=== PATIENT | female | born 1955 | race Caucasian/White ===

== ENCOUNTER → 2019-12-27 | Outpatient (REF) | payer MEDICARE | LOC: M SFHCADAM 10:19 | PROVIDERS: ATTEND Physician Assistant | DX: R30.0 Dysuria (principal) ==

== ENCOUNTER → 2020-11-01 | Outpatient (REF) | payer MEDICARE ==
[2020-11-01 17:29] LABS: ALBUMIN 3.7 GM/DL (3.2-5.2); BILIRUBIN,TOTAL 0.5 MG/DL (0.2-1.0); CALCIUM LEVEL 8.6 MG/DL (8.8-10.2); CREATININE FOR GFR 1.85 MG/DL (0.55-1.30); GLOMERULAR FILTRATION RATE 29.2 (>45); POTASSIUM SERUM 4.4 MEQ/L (3.5-5.1); TOTAL PROTEIN 7.2 GM/DL (6.4-8.2)
[2020-11-01 17:39] LABS: HEMOGLOBIN A1c 9.4 %
== END ==
LOC: M SFHCADAM 11:37
PROVIDERS: ATTEND Physician Assistant
DX: E78.2 Mixed hyperlipidemia (principal); I10 Essential (primary) hypertension; E11.69 Type 2 diabetes mellitus with other specified complication
CPT/HCPCS: 80053; 80061; 83036; G0463

== ENCOUNTER → 2021-06-18 | Outpatient (REF) | payer OTHER ==
[2021-06-18 14:26] LABS: ALBUMIN 2.4 GM/DL (3.2-5.2); BILIRUBIN,TOTAL 0.6 MG/DL (0.2-1.0); CALCIUM LEVEL 8.7 MG/DL (8.8-10.2); CREATININE FOR GFR 2.68 MG/DL (0.55-1.30); POTASSIUM SERUM 4.7 MEQ/L (3.5-5.1); TOTAL PROTEIN 6.7 GM/DL (6.4-8.2)
[2021-06-18 14:49] LABS: HEMOGLOBIN A1c 9.6 %
== END ==
LOC: M SFHCADAM 09:40
PROVIDERS: ATTEND Physician Assistant
DX: E78.2 Mixed hyperlipidemia (principal); I10 Essential (primary) hypertension; E11.69 Type 2 diabetes mellitus with other specified complication
CPT/HCPCS: 80053; 83036; G0463

== ENCOUNTER 2021-09-07 11:55 | Outpatient (CLI) | payer OTHER ==
[~2021-09-07 11:55] MED LIST: ALBUTEROL SULFATE 2.5 MG/0.5 ML INH NEB SOLN INH PRN; EPINEPHrine INJ 1 MG/ML 1ML AMP IM PRN; diphenhydrAMINE 50MG/ML VIAL (J1200) IV PRN; methylPREDNISolone 125MG 2ML VIAL IV PRN
[2021-09-07 12:00] VITALS: BP 107/55
[2021-09-07] MEDS ORDERED: IRON SUCROSE 75 MG in NS 75 ML IV ONE (12:00)
[2021-09-07] MEDS ORDERED: diphenhydrAMINE 50MG/ML VIAL (J1200) IV ONE (12:00)
[2021-09-07] MEDS ORDERED: NS 1,000 ML IV SCH (12:00)
[2021-09-07] MEDS ORDERED: NS IV ONE (12:00)
[2021-09-07] MEDS ORDERED: IRON SUCROSE IV ONE (12:00)
[2021-09-07] MEDS ORDERED: methylPREDNISolone 40MG 1ML VIAL IV ONE (12:00)
[2021-09-07] MEDS ORDERED: IRON SUCROSE 25 MG in NS 25 ML IV ONE (12:00)
[2021-09-07 13:35] VITALS: BP 105/60
[2021-09-07 14:00] VITALS: BP 93/57
== END 2021-09-07 14:10 | disposition home or self-care (01) ==
LOC: M INFU 11:55
PROVIDERS: ATTEND Physician Assistant
DX: D50.8 Other iron deficiency anemias (principal)
CPT/HCPCS: 96365; J1756

== ENCOUNTER 2021-09-14 11:56 | Outpatient (CLI) | payer OTHER ==
[2021-09-14] MEDS ORDERED: IRON SUCROSE 100 MG in NS 100 ML OVER 1 HR IV ONE (12:00)
[2021-09-14] MEDS ORDERED: NS 1,000 ML IV SCH (12:00)
[2021-09-14] MEDS ORDERED: EPINEPHrine INJ 1 MG/ML 1ML AMP IM PRN (12:00)
[2021-09-14] MEDS ORDERED: diphenhydrAMINE 50MG/ML VIAL (J1200) IV PRN (12:00)
[2021-09-14] MEDS ORDERED: diphenhydrAMINE 50MG/ML VIAL (J1200) IV ONE (12:00)
[2021-09-14] MEDS ORDERED: ALBUTEROL SULFATE 2.5 MG/0.5 ML INH NEB SOLN INH PRN (12:00)
[2021-09-14] MEDS ORDERED: methylPREDNISolone 40MG 1ML VIAL IV ONE (12:00)
[2021-09-14] MEDS ORDERED: methylPREDNISolone 125MG 2ML VIAL IV PRN (12:00)
[2021-09-14 12:10] VITALS: BP 101/73
[2021-09-14 15:15] VITALS: BP 118/60
== END 2021-09-14 15:15 | disposition home or self-care (01) ==
LOC: M INFU 11:56
PROVIDERS: ATTEND Physician Assistant
DX: D50.8 Other iron deficiency anemias (principal)
CPT/HCPCS: 96365; J1756

== ENCOUNTER 2021-09-24 11:17 | Outpatient (CLI) | payer OTHER ==
[~2021-09-24 11:17] MED LIST changes: +IRON SUCROSE 100 MG in NS 100 ML IV ONE; +IRON SUCROSE 75 MG in NS 100 ML IV ONE; +NS 1,000 ML IV SCH
[2021-09-24 11:35] VITALS: BP 142/69
[2021-09-24] MEDS ORDERED: IRON SUCROSE 100 MG in NS 100 ML OVER 1 HR IV ONE (12:00)
[2021-09-24] MEDS ORDERED: NS 1,000 ML IV ONE (12:00)
[2021-09-24 12:30] VITALS: BP 145/84
[2021-09-24 13:26] VITALS: BP 144/74
== END 2021-09-24 13:30 | disposition home or self-care (01) ==
LOC: M INFU 11:17
PROVIDERS: ATTEND Physician Assistant
DX: D50.8 Other iron deficiency anemias (principal); Z88.0 Allergy status to penicillin; Z88.1 Allergy status to other antibiotic agents
CPT/HCPCS: 96365; J1756

== ENCOUNTER → 2021-12-19 | Outpatient (REF) | payer OTHER ==
[2021-12-19 17:55] LABS: PERCENT SATURATION 15.7 % (13.2-45.0)
== END ==
LOC: M LAB REF 16:47
PROVIDERS: ATTEND Internal Medicine Nephrology
DX: E61.1 Iron deficiency (principal)

== ENCOUNTER 2021-12-31 13:24 | Outpatient (CLI) | payer OTHER ==
[~2021-12-31] VITALS: Ht 180.3 cm; Wt 83.9 kg
[~2021-12-31 13:24] MED LIST changes: -IRON SUCROSE 100 MG in NS 100 ML IV ONE; -IRON SUCROSE 75 MG in NS 100 ML IV ONE; -NS 1,000 ML IV SCH
[2021-12-31 13:30] VITALS: BP 174/72
[2021-12-31] MEDS ORDERED: NS 1,000 ML IV SCH (13:30)
[2021-12-31] MEDS ORDERED: FERRIC CARBOXYMALTOSE INJ 750 MG, VIAL MATE ADAPTER 1 EACH in NS 250 ML IV ONE (13:30)
[2021-12-31 15:00] VITALS: BP 151/67
== END 2021-12-31 15:00 | disposition home or self-care (01) ==
LOC: M INFU 13:24
PROVIDERS: ATTEND Internal Medicine Nephrology
DX: E61.1 Iron deficiency (principal); Z88.0 Allergy status to penicillin; Z88.1 Allergy status to other antibiotic agents
CPT/HCPCS: 96365; J1439

== ENCOUNTER 2022-05-13 17:37 | Inpatient (IN) | payer OTHER ==
[~2022-05-13] VITALS: Ht 180.3 cm; Wt 82.5 kg
[2022-05-13] MEDS ORDERED: PANTOPRAZOLE 40MG VIAL IV ONE (20:40)
[2022-05-13] MEDS: PANTOPRAZOLE SODIUM 40 MG in D5W 50 ML IV SCH (20:40)
[2022-05-13 20:45] LABS: BASO # 0.1 10^3/uL (0.0-0.2); EOS # 0.1 10^3/uL (0.0-0.5); LYMPH # 2.1 10^3/uL (1.5-5.0); LYMPH % 29.9 % (24.0-44.0); MEAN CORPUSCULAR HEMOGLOBIN 31.8 pg (27.0-33.0); MEAN CORPUSCULAR HGB CONC 30.8 g/dl (32.0-36.5); MEAN CORPUSCULAR VOLUME 103.1 fl (80.0-96.0); MONO # 0.5 10^3/uL (0.0-0.8); MONO % 6.7 % (2.0-8.0); NEUTROPHILS # 4.2 10^3/uL (1.5-8.5); NEUTROPHILS % 60.1 % (36.0-66.0); PLATELET COUNT, AUTOMATED 322 10^3/uL (150-450); RED BLOOD COUNT 1.92 10^6/uL (4.00-5.40)
[2022-05-13 20:46] LABS: HEMOGLOBIN 6.1 g/dl (12.0-15.5)
[2022-05-13 20:47] LABS: HEMATOCRIT 19.8 % (36.0-47.0)
[2022-05-13 20:55] LABS: INR 1.48; PROTHROMBIN TIME 18.2 SECONDS (12.5-14.5)
[2022-05-13] MEDS ORDERED: diphenhydrAMINE 50MG/ML VIAL (J1200) IV ONE (20:55)
[2022-05-13 20:56] LABS: PARTIAL THROMBOPLASTIN TIME 40.6 SECONDS (24.8-34.2)
[2022-05-13 21:15] LABS: RSV AMPLIFICATION NEGATIVE (NEGATIVE)
[2022-05-13] MEDS ORDERED: NOVOINJ3 SQ (21:38)
[2022-05-13] MEDS ORDERED: GABA-282 PO (21:38)
[2022-05-13] MEDS ORDERED: TIMO0.5S29 OD (21:38)
[2022-05-13] MEDS ORDERED: LANTINJ4 SC (21:38)
[2022-05-13] MEDS ORDERED: ATOR40TA75 PO (21:38)
[2022-05-13] MEDS ORDERED: HYDR-3719 PO (21:38)
[2022-05-13] MEDS ORDERED: LISI10TA22 PO ×2 (21:38)
[2022-05-13] MEDS ORDERED: VITA100093 PO (21:38)
[2022-05-13] MEDS ORDERED: MIRT-10 PO (21:38)
[2022-05-13] MEDS ORDERED: ELIQ5TAB PO (21:38)
[2022-05-13 21:39] LABS: ALBUMIN 2.5 GM/DL (3.2-5.2); BILIRUBIN,DIRECT 0.2 MG/DL (0.0-0.2); BILIRUBIN,TOTAL 0.5 MG/DL (0.2-1.0); CALCIUM LEVEL 8.2 MG/DL (8.8-10.2); CREATININE FOR GFR 2.07 MG/DL (0.55-1.30); GLOMERULAR FILTRATION RATE 25.5 (>45); POTASSIUM SERUM 4.2 MEQ/L (3.5-5.1); TOTAL PROTEIN 5.8 GM/DL (6.4-8.2)
[2022-05-13] MEDS ORDERED: HOME MED LIST COMPLETE! XX SCH (21:40)
[2022-05-13] MEDS ORDERED: ALBUTEROL SULFATE 2.5 MG/0.5 ML INH NEB SOLN NEB PRN (23:25)
[2022-05-13] MEDS: NS 1,000 ML IV SCH (23:25)
[2022-05-13] MEDS ORDERED: GLUCAGON INJ 1MG VIAL SC PRN (23:25)
[2022-05-13] MEDS ORDERED: DEXTROSE 50% 50 ML SYRINGE IV PRN (23:25)
[2022-05-13] MEDS ORDERED: METOCLOPRAMIDE INJ 10MG/2ML VIAL (J2765 PER 1) IV PRN (23:25)
[2022-05-13] MEDS ORDERED: GLUCOSE 4GM CHEW TABLET PO PRN (23:25)
[2022-05-14] VITALS (16 sets, daily range): BP systolic 116–140; BP diastolic 67–91
[2022-05-14] MEDS: INSULIN LISPRO (NovoLOG) PER UNIT SC SCH ×2 (01:20→06:33)
[2022-05-14] MEDS: HYDROMORPHONE HCL 0.5 MG/ 0.5 ML SYRINGE (J1170 PER 1) IV PRN ×3 (01:58→14:39)
[2022-05-14] MEDS: IPRATROPIUM 0.5MG/ALBUTEROL 2.5MG INH SOL UD 3ML (DUONEB) NEB SCH ×4 (02:00→21:07)
[2022-05-14] MEDS: PANTOPRAZOLE SODIUM 40 MG in D5W 50 ML IV SCH (02:04)
[2022-05-14] MEDS ORDERED: diphenhydrAMINE 50MG CAP PO PRN (04:00)
[2022-05-14] MEDS: PANTOPRAZOLE 40MG VIAL IV SCH ×2 (08:10→21:32)
[2022-05-14] MEDS: TIMOLOL MALEATE 0.5% OPHTH SOLN 5 ML OD SCH ×2 (08:10→21:33)
[2022-05-14] MEDS: LEVEMIR (INSULIN DETEMIR) 1 UNITS/0.01ML SC SCH (08:10)
[2022-05-14] MEDS: NICOTINE 21MG/24HR 1 EA TRANSDERMAL TD SCH (08:11)
[2022-05-14] MEDS ORDERED: FLUBLOK(EGG FREE)(QUAD)INFLUENZA VACC 0.5ML SYRINGE 18YRS & OLDER IM.IMMUN ONE (09:00)
[2022-05-14] MEDS ORDERED: hydrOXYzine 50 MG TAB PO PRN (09:25)
[2022-05-14 09:37] LABS: HEMATOCRIT 25.9 % (36.0-47.0)
[2022-05-14 09:44] LABS: HEMOGLOBIN 8.2 g/dl (12.0-15.5)
[2022-05-14 10:09] LABS: CALCIUM LEVEL 8.2 MG/DL (8.8-10.2); CREATININE FOR GFR 2.04 MG/DL (0.55-1.30); GLOMERULAR FILTRATION RATE 25.9 (>45); POTASSIUM SERUM 4.1 MEQ/L (3.5-5.1)
[2022-05-14] MEDS: GABAPENTIN 300 MG CAP PO SCH ×3 (10:23→21:33)
[2022-05-14] MEDS: VANICREAM MOISTURIZING SKIN CREAM 113GM TUBE TOP SCH ×2 (12:17→21:33)
[2022-05-14 14:39] LABS: HEMATOCRIT 27.5 % (36.0-47.0); HEMOGLOBIN 8.7 g/dl (12.0-15.5)
[2022-05-14] MEDS: SUCRALFATE SUSP 1GM/10ML UD PO SCH (17:02)
[2022-05-14] MEDS: NS 1,000 ML IV SCH (17:03)
[2022-05-14 20:08] LABS: HEMATOCRIT 24.5 % (36.0-47.0); HEMOGLOBIN 7.8 g/dl (12.0-15.5)
[2022-05-14] MEDS: NORCO, ANEXSIA 5/325MG TABLET (HYDROcodone/ACETAMINOPHEN) PO PRN (21:33)
[2022-05-14] MEDS: MIRTAZAPINE 15 MG TAB PO SCH (21:33)
[2022-05-15] MEDS: SUCRALFATE SUSP 1GM/10ML UD PO SCH ×5 (00:06→23:41)
[2022-05-15] MEDS: IPRATROPIUM 0.5MG/ALBUTEROL 2.5MG INH SOL UD 3ML (DUONEB) NEB SCH ×4 (02:00→21:13)
[2022-05-15 03:54] LABS: BASO # 0.1 10^3/uL (0.0-0.2); BASO % 0.9 % (0.0-1.0); EOS # 0.2 10^3/uL (0.0-0.5); EOS % 3.1 % (0.0-3.0); HEMATOCRIT 28.4 % (36.0-47.0); HEMOGLOBIN 9.4 g/dl (12.0-15.5); LYMPH # 1.6 10^3/uL (1.5-5.0); LYMPH % 23.5 % (24.0-44.0); MEAN CORPUSCULAR HEMOGLOBIN 31.1 pg (27.0-33.0); MEAN CORPUSCULAR HGB CONC 33.1 g/dl (32.0-36.5); MONO # 0.5 10^3/uL (0.0-0.8); MONO % 7.5 % (2.0-8.0); NEUTROPHILS # 4.4 10^3/uL (1.5-8.5); NEUTROPHILS % 64.7 % (36.0-66.0); PLATELET COUNT, AUTOMATED 267 10^3/uL (150-450); RED BLOOD COUNT 3.02 10^6/uL (4.00-5.40); WHITE BLOOD COUNT 6.8 10^3/uL (4.0-10.0)
[2022-05-15 04:11] LABS: CALCIUM LEVEL 8.1 MG/DL (8.8-10.2); CREATININE FOR GFR 1.96 MG/DL (0.55-1.30); GLOMERULAR FILTRATION RATE 27.2 (>45); MAGNESIUM LEVEL 1.5 MG/DL (1.8-2.4); PERCENT SATURATION 90.9 % (13.2-45.0); PHOSPHORUS LEVEL 3.4 MG/DL (2.5-4.9); POTASSIUM SERUM 4.6 MEQ/L (3.5-5.1)
[2022-05-15 05:29] VITALS: BP 125/76
[2022-05-15] MEDS: INSULIN LISPRO (NovoLOG) PER UNIT SC SCH ×3 (07:30→17:29)
[2022-05-15] MEDS ORDERED: MAG SULF 1GM/100ML (MAG RUN) 1 GM in IV 1 EA IV ONE (08:05)
[2022-05-15] MEDS: NICOTINE 21MG/24HR 1 EA TRANSDERMAL TD SCH (08:47)
[2022-05-15] MEDS: MAGNESIUM OXIDE 400MG TAB (MAG-OX) PO SCH (08:48)
[2022-05-15] MEDS: LEVEMIR (INSULIN DETEMIR) 1 UNITS/0.01ML SC SCH (08:48)
[2022-05-15] MEDS: GABAPENTIN 300 MG CAP PO SCH ×3 (08:48→21:44)
[2022-05-15] MEDS: PANTOPRAZOLE 40MG VIAL IV SCH ×2 (08:48→21:44)
[2022-05-15] MEDS: TIMOLOL MALEATE 0.5% OPHTH SOLN 5 ML OD SCH ×2 (08:49→21:45)
[2022-05-15] MEDS: VANICREAM MOISTURIZING SKIN CREAM 113GM TUBE TOP SCH ×2 (08:49→21:45)
[2022-05-15] MEDS ORDERED: DARBEPOETIN 100 MCG/0.5 ML *NON-DIALYSIS* SYRINGE (J0881) SQ SCH (09:00)
[2022-05-15] MEDS ORDERED: IRON SUCROSE 300 MG in NS 250 ML IV ONE (11:00)
[2022-05-15 14:00] VITALS: BP 124/70
[2022-05-15] MEDS ORDERED: LevoFLOXacin IV 500 MG in IV 1 EA IV ONE (16:00)
[2022-05-15] MEDS ORDERED: CEFDINIR 300 MG CAP (OMNICEF) PO ONE (18:00)
[2022-05-15] MEDS: NORCO, ANEXSIA 5/325MG TABLET (HYDROcodone/ACETAMINOPHEN) PO PRN ×2 (18:19→23:42)
[2022-05-15] MEDS: MIRTAZAPINE 15 MG TAB PO SCH (21:44)
[2022-05-15 22:00] VITALS: BP 113/49
[2022-05-16] MEDS: IPRATROPIUM 0.5MG/ALBUTEROL 2.5MG INH SOL UD 3ML (DUONEB) NEB SCH ×2 (02:00→07:23)
[2022-05-16 05:42] VITALS: BP 132/84
[2022-05-16] MEDS: SUCRALFATE SUSP 1GM/10ML UD PO SCH ×2 (05:49→12:18)
[2022-05-16 06:50] LABS: CALCIUM LEVEL 7.7 MG/DL (8.8-10.2); CREATININE FOR GFR 2.27 MG/DL (0.55-1.30); GLOMERULAR FILTRATION RATE 22.9 (>45); POTASSIUM SERUM 4.8 MEQ/L (3.5-5.1)
[2022-05-16 07:07] LABS: FOLATE 11.3 ng/mL (>3.0)
[2022-05-16] MEDS: GABAPENTIN 300 MG CAP PO SCH (08:28)
[2022-05-16] MEDS: MAGNESIUM OXIDE 400MG TAB (MAG-OX) PO SCH (08:28)
[2022-05-16] MEDS: PANTOPRAZOLE 40MG VIAL IV SCH (08:28)
[2022-05-16] MEDS: INSULIN LISPRO (NovoLOG) PER UNIT SC SCH ×2 (08:29→12:19)
[2022-05-16] MEDS: NICOTINE 21MG/24HR 1 EA TRANSDERMAL TD SCH (08:30)
[2022-05-16] MEDS: VANICREAM MOISTURIZING SKIN CREAM 113GM TUBE TOP SCH (08:30)
[2022-05-16] MEDS: TIMOLOL MALEATE 0.5% OPHTH SOLN 5 ML OD SCH (08:30)
[2022-05-16] MEDS ORDERED: CEFDINIR 300 MG CAP (OMNICEF) PO SCH (09:00)
[2022-05-16] MEDS ORDERED: LEVEMIR (INSULIN DETEMIR) 1 UNITS/0.01ML SC SCH (09:00)
[2022-05-16 09:34] LABS: BASO # 0.1 10^3/uL (0.0-0.2); BASO % 1.2 % (0.0-1.0); EOS # 0.2 10^3/uL (0.0-0.5); EOS % 2.7 % (0.0-3.0); HEMATOCRIT 30.8 % (36.0-47.0); HEMOGLOBIN 9.5 g/dl (12.0-15.5); LYMPH # 1.1 10^3/uL (1.5-5.0); LYMPH % 14.4 % (24.0-44.0); MEAN CORPUSCULAR HEMOGLOBIN 30.4 pg (27.0-33.0); MEAN CORPUSCULAR HGB CONC 30.8 g/dl (32.0-36.5); MEAN CORPUSCULAR VOLUME 98.7 fl (80.0-96.0); MONO # 0.7 10^3/uL (0.0-0.8); MONO % 8.4 % (2.0-8.0); NEUTROPHILS # 5.7 10^3/uL (1.5-8.5); NEUTROPHILS % 72.9 % (36.0-66.0); PLATELET COUNT, AUTOMATED 299 10^3/uL (150-450); RED BLOOD COUNT 3.12 10^6/uL (4.00-5.40); WHITE BLOOD COUNT 7.8 10^3/uL (4.0-10.0)
[2022-05-16] MEDS ORDERED: CEFD300CAP PO (12:42)
[2022-05-16] MEDS ORDERED: SUCR1TA PO (12:42)
[2022-05-16] MEDS ORDERED: PANT40TA29 PO (12:42)
[2022-05-16] MEDS ORDERED: LevoFLOXacin IV 250 MG in IV 1 EA IV SCH (16:00)
== END 2022-05-16 14:59 | disposition home health service (06) | DRG 813 ==
LOC: M ED 17:37 → M ED INP 23:21 → ENRESERV 05-14 00:26 → M MSPAV 05-14 02:26
PROVIDERS: ADMIT Internal Medicine; ATTEND Internal Medicine Nephrology
PROC: 30233N1 Transfusion of Nonautologous Red Blood Cells into Peripheral Vein, Percutaneous Approach (ICD-10-PCS; principal; 2022-05-14)
DX: D68.32 Hemorrhagic disorder due to extrinsic circulating anticoagulants (principal); N18.4 Chronic kidney disease, stage 4 (severe); D62 Acute posthemorrhagic anemia; K92.2 Gastrointestinal hemorrhage, unspecified; N39.0 Urinary tract infection, site not specified; K86.1 Other chronic pancreatitis; I48.91 Unspecified atrial fibrillation; K70.30 Alcoholic cirrhosis of liver without ascites; F17.210 Nicotine dependence, cigarettes, uncomplicated; L89.159 Pressure ulcer of sacral region, unspecified stage; R00.0 Tachycardia, unspecified; I12.9 Hypertensive chronic kidney disease with stage 1 through stage 4 chronic kidney disease, or unspecified chronic kidney disease; F32.A Depression, unspecified; J44.9 Chronic obstructive pulmonary disease, unspecified; E11.22 Type 2 diabetes mellitus with diabetic chronic kidney disease; E11.51 Type 2 diabetes mellitus with diabetic peripheral angiopathy without gangrene; I73.9 Peripheral vascular disease, unspecified; Z79.01 Long term (current) use of anticoagulants; Z79.4 Long term (current) use of insulin; Z79.899 Other long term (current) drug therapy; Z88.0 Allergy status to penicillin; Z88.1 Allergy status to other antibiotic agents; Z20.822 Contact with and (suspected) exposure to COVID-19; Z89.511 Acquired absence of right leg below knee; Z89.512 Acquired absence of left leg below knee; Z79.891 Long term (current) use of opiate analgesic; L29.9 Pruritus, unspecified; K21.9 Gastro-esophageal reflux disease without esophagitis; E11.42 Type 2 diabetes mellitus with diabetic polyneuropathy; E78.5 Hyperlipidemia, unspecified; G89.29 Other chronic pain; B96.1 Klebsiella pneumoniae [K. pneumoniae] as the cause of diseases classified elsewhere; D63.1 Anemia in chronic kidney disease; D50.9 Iron deficiency anemia, unspecified; K29.70 Gastritis, unspecified, without bleeding; E11.622 Type 2 diabetes mellitus with other skin ulcer

== ENCOUNTER → 2022-05-13 | Outpatient (REF) | payer OTHER ==
[~2022-05-13] MED LIST changes: -ALBUTEROL SULFATE 2.5 MG/0.5 ML INH NEB SOLN INH PRN; +ATOR40TA75 PO; +CEFD300CAP PO; +ELIQ5TAB PO; -EPINEPHrine INJ 1 MG/ML 1ML AMP IM PRN; +GABA-282 PO; +HYDR-3719 PO; +LANTINJ4 SC; +LISI10TA22 PO; +MIRT-10 PO; +NOVOINJ3 SQ; +PANT40TA29 PO; +SUCR1TA PO; +TIMO0.5S29 OD; +VITA100093 PO; -diphenhydrAMINE 50MG/ML VIAL (J1200) IV PRN; -methylPREDNISolone 125MG 2ML VIAL IV PRN
[2022-05-13 22:12] LABS: BACTERIA, URINE LARGE AMOUNT; HYALINE CAST, URINE NONE SEEN /lpf (0-1); RBC, URINE NONE SEEN /hpf (0-3); SQUAMOUS EPITHELIAL CELL URINE MOD AMOUNT /hpf (SMALL AMT); WBC, URINE TNTC /hpf (0-3)
== END ==
LOC: M LAB REF 16:58
PROVIDERS: ATTEND Internal Medicine Nephrology
DX: R30.0 Dysuria (principal)

== ENCOUNTER → 2022-05-30 | Outpatient (REF) | payer OTHER ==
[2022-05-30 13:36] LABS: HEMATOCRIT 30.2 % (36.0-47.0); HEMOGLOBIN 8.9 g/dl (12.0-15.5); MEAN CORPUSCULAR HEMOGLOBIN 30.6 pg (27.0-33.0); MEAN CORPUSCULAR HGB CONC 29.5 g/dl (32.0-36.5); MEAN CORPUSCULAR VOLUME 103.8 fl (80.0-96.0); PLATELET COUNT, AUTOMATED 369 10^3/uL (150-450); RED BLOOD COUNT 2.91 10^6/uL (4.00-5.40); WHITE BLOOD COUNT 8.5 10^3/uL (4.0-10.0)
[2022-05-30 13:48] LABS: INR 1.08; PROTHROMBIN TIME 14.2 SECONDS (12.5-14.5)
[2022-05-30 14:31] LABS: ALBUMIN 2.7 GM/DL (3.2-5.2); BILIRUBIN,TOTAL 0.5 MG/DL (0.2-1.0); CHOLESTEROL RISK RATIO 2.538 (<5); CREATININE FOR GFR 2.68 MG/DL (0.55-1.30); FREE T4 1.24 NG/DL (0.76-1.46); GLOMERULAR FILTRATION RATE 18.9 (>45); PERCENT SATURATION 10.2 % (13.2-45.0); POTASSIUM SERUM 4.8 MEQ/L (3.5-5.1); THYROID STIMULATING HORMONE 2.34 uIU/ML (0.358-3.740); TOTAL PROTEIN 6.1 GM/DL (6.4-8.2)
[2022-05-30 16:10] LABS: HEMOGLOBIN A1c 6.5 %
== END ==
LOC: M SFHCADAM 10:13
PROVIDERS: ATTEND Family Medicine
DX: K92.2 Gastrointestinal hemorrhage, unspecified (principal); K70.30 Alcoholic cirrhosis of liver without ascites; R32 Unspecified urinary incontinence; E11.69 Type 2 diabetes mellitus with other specified complication; I48.21 Permanent atrial fibrillation

== ENCOUNTER → 2022-06-27 | Outpatient (CLI) | payer OTHER | LOC: M RAD 13:44 | PROVIDERS: ATTEND Family Medicine | DX: Z12.2 Encounter for screening for malignant neoplasm of respiratory organs (principal); J90 Pleural effusion, not elsewhere classified; J98.11 Atelectasis; F17.210 Nicotine dependence, cigarettes, uncomplicated ==

== ENCOUNTER 2022-07-04 12:27 | Outpatient (CLI) | payer OTHER ==
[~2022-07-04] VITALS: Ht 180.3 cm; Wt 79.5 kg
[2022-07-04 13:00] VITALS: BP 136/82
[2022-07-04] MEDS ORDERED: FERRIC CARBOXYMALTOSE INJ 750 MG, VIAL MATE ADAPTER 1 EACH in NS 250 ML IV ONE (13:30)
[2022-07-04] MEDS ORDERED: EPINEPHrine INJ 1 MG/ML 1ML AMP IM PRN (13:30)
[2022-07-04] MEDS ORDERED: NS 1,000 ML IV SCH (13:30)
[2022-07-04] MEDS ORDERED: ALBUTEROL SULFATE 2.5 MG/0.5 ML INH NEB SOLN INH PRN (13:30)
[2022-07-04] MEDS ORDERED: methylPREDNISolone 125MG 2ML VIAL IV PRN (13:30)
[2022-07-04] MEDS ORDERED: diphenhydrAMINE 50MG/ML VIAL IV PRN (13:30)
[2022-07-04 14:40] VITALS: BP 127/78
== END 2022-07-04 14:40 | disposition home or self-care (01) ==
LOC: M INFU 12:27
PROVIDERS: ATTEND Internal Medicine Nephrology
DX: E61.1 Iron deficiency (principal); Z88.0 Allergy status to penicillin; Z88.1 Allergy status to other antibiotic agents
CPT/HCPCS: 96365; J1439

== ENCOUNTER 2022-08-02 09:43 | Inpatient (IN) | payer OTHER ==
[~2022-08-02] VITALS: Ht 180.3 cm; Wt 89.5 kg
[2022-08-02 12:06] LABS: BASO % 0.5 % (0.0-1.0); EOS # 0.1 10^3/uL (0.0-0.5); EOS % 1.3 % (0.0-3.0); HEMATOCRIT 34.8 % (36.0-47.0); HEMOGLOBIN 11.1 g/dl (12.0-15.5); LYMPH # 1.1 10^3/uL (1.5-5.0); LYMPH % 17.4 % (24.0-44.0); MEAN CORPUSCULAR HEMOGLOBIN 31.2 pg (27.0-33.0); MEAN CORPUSCULAR HGB CONC 31.9 g/dl (32.0-36.5); MEAN CORPUSCULAR VOLUME 97.8 fl (80.0-96.0); MONO # 0.7 10^3/uL (0.0-0.8); MONO % 10.7 % (2.0-8.0); NEUTROPHILS # 4.4 10^3/uL (1.5-8.5); NEUTROPHILS % 69.5 % (36.0-66.0); PLATELET COUNT, AUTOMATED 242 10^3/uL (150-450); RED BLOOD COUNT 3.56 10^6/uL (4.00-5.40); WHITE BLOOD COUNT 6.4 10^3/uL (4.0-10.0)
[2022-08-02 12:30] LABS: ALBUMIN 2.9 G/DL (3.2-5.2); BILIRUBIN,DIRECT 0.3 MG/DL (<0.4); BILIRUBIN,TOTAL 0.4 MG/DL (0.3-1.2); CALCIUM LEVEL 7.8 MG/DL (8.3-10.6); CREATININE FOR GFR 2.65 MG/DL (0.55-1.30); GLOMERULAR FILTRATION RATE 19.2 (>45); POTASSIUM SERUM 4.5 MMOL/L (3.5-5.1)
[2022-08-02 12:31] LABS: CK-MB VALUE MASS 1.9 NG/ML (<3.6)
[2022-08-02 12:34] LABS: THYROID STIMULATING HORMONE 2.504 uIU/ML (0.55-4.78)
[2022-08-02 12:35] LABS: RSV AMPLIFICATION NEGATIVE (NEGATIVE); THYROXINE (T4) 7.8 UG/DL (4.5-10.9)
[2022-08-02 12:36] LABS: MB/CK RELATIVE INDEX 3.06 (< OR =4)
[2022-08-02 14:14] LABS: CK-MB VALUE MASS 1.8 NG/ML (<3.6)
[2022-08-02 14:17] LABS: MB/CK RELATIVE INDEX 2.4 (< OR =4)
[2022-08-02] MEDS ORDERED: methylPREDNISolone 125MG 2ML VIAL IV ONE (14:20)
[2022-08-02] MEDS ORDERED: FUROSEMIDE 20MG/2ML VIAL IV ONE (14:20)
[2022-08-02] MEDS ORDERED: MIRT-60 PO (14:21)
[2022-08-02] MEDS ORDERED: PANT40TA29 PO (14:21)
[2022-08-02] MEDS ORDERED: GLUCINJ IM (14:28)
[2022-08-02] MEDS ORDERED: COMBAER6 INH (14:28)
[2022-08-02] MEDS ORDERED: LEVO1TAB38 PO (14:28)
[2022-08-02] MEDS ORDERED: FURO80TA2 PO (14:28)
[2022-08-02] MEDS ORDERED: HOME MED LIST COMPLETE! XX SCH (14:30)
[2022-08-02] MEDS ORDERED: NORCO, ANEXSIA 5/325MG TABLET (HYDROcodone/ACETAMINOPHEN) PO PRN (14:35)
[2022-08-02] MEDS ORDERED: DEXTROSE 50% 50ML SYRINGE IV PRN (14:40)
[2022-08-02] MEDS ORDERED: GLUCOSE 4GM CHEW TABLET PO PRN (14:40)
[2022-08-02] MEDS ORDERED: GLUCAGON INJ 1MG VIAL SC PRN (14:40)
[2022-08-02] MEDS: LEVALBUTEROL 1.25MG 0.5ML CONCENTRATE NEB NEB SCH ×2 (16:00→20:00)
[2022-08-02] MEDS: IPRATROPIUM 0.02% SOLN 0.5MG 2.5ML NEB NEB SCH ×2 (16:00→20:00)
[2022-08-02] MEDS ORDERED: GABAPENTIN 300 MG CAP PO SCH (16:00)
[2022-08-02] MEDS: AZITHROMYCIN 250MG TABLET PO SCH (16:49)
[2022-08-02 18:00] VITALS: BP 114/62
[2022-08-02] MEDS: NICOTINE 21MG/24HR 1 EA TRANSDERMAL TD SCH (18:21)
[2022-08-02] MEDS: INSULIN LISPRO (NovoLOG) PER UNIT SC SCH (18:22)
[2022-08-02] MEDS: GABAPENTIN 100 MG CAP PO SCH (20:55)
[2022-08-02] MEDS: METOPROLOL TART 12.5 MG PER 1/2 TAB PO SCH (20:55)
[2022-08-02] MEDS: HEPARIN SOD (PORCINE) 5000UNITS/ML 1ML VIAL/SYRINGE SC SCH (20:55)
[2022-08-02] MEDS: PANTOPRAZOLE 40MG TAB (PROTONIX) PO SCH (20:56)
[2022-08-02] MEDS: MIRTAZAPINE 15 MG TAB PO SCH (20:56)
[2022-08-02] MEDS: TIMOLOL MALEATE 0.5% OPHTH SOLN 5 ML OD SCH (21:00)
[2022-08-02] MEDS ORDERED: INSULIN LISPRO (NovoLOG) PER UNIT SC SCH (21:00)
[2022-08-02 22:00] VITALS: BP 114/66
[2022-08-03 02:41] LABS: APPEARANCE, URINE MANUAL HAZY (CLEAR); BILIRUBIN, URINE MANUAL NEGATIVE (NEGATIVE); BLOOD URINE MANUAL TRACE (NEGATIVE); COLOR, URINE MANUAL YELLOW (YELLOW); GLUCOSE, URINE (UA) MANUAL 1+(100 MG/DL) mg/dL (NEGATIVE); KETONE, URINE MANUAL NEGATIVE (NEGATIVE); LEUKOCYTE ESTERASE, URINE MAN POSITIVE (NEGATIVE); NITRITE, URINE MANUAL NEGATIVE (NEGATIVE); PROTEIN, URINE MANUAL TRACE mg/dL (NEGATIVE); UROBILINOGEN, URINE MANUAL NORMAL (NORMAL)
[2022-08-03 02:59] LABS: RBC, URINE 0-1 /hpf (0-3); WBC, URINE 20-30 /hpf (0-3)
[2022-08-03 03:00] LABS: BACTERIA, URINE LARGE AMOUNT; MUCUS, URINE MOD AMOUNT (NEGATIVE); SQUAMOUS EPITHELIAL CELL URINE NONE SEEN /hpf (SMALL AMT)
[2022-08-03 06:00] VITALS: BP 134/86
[2022-08-03 06:06] LABS: HEMATOCRIT 33.9 % (36.0-47.0); HEMOGLOBIN 10.7 g/dl (12.0-15.5); MEAN CORPUSCULAR HEMOGLOBIN 30.9 pg (27.0-33.0); MEAN CORPUSCULAR HGB CONC 31.6 g/dl (32.0-36.5); PLATELET COUNT, AUTOMATED 249 10^3/uL (150-450); RED BLOOD COUNT 3.46 10^6/uL (4.00-5.40); WHITE BLOOD COUNT 5.3 10^3/uL (4.0-10.0)
[2022-08-03 06:33] LABS: MAGNESIUM LEVEL 1.5 MG/DL (1.8-2.4)
[2022-08-03 06:34] LABS: CALCIUM LEVEL 7.8 MG/DL (8.3-10.6); CREATININE FOR GFR 2.5 MG/DL (0.55-1.30); GLOMERULAR FILTRATION RATE 20.5 (>45); POTASSIUM SERUM 4.3 MMOL/L (3.5-5.1)
[2022-08-03] MEDS: IPRATROPIUM 0.02% SOLN 0.5MG 2.5ML NEB NEB SCH ×4 (07:13→19:36)
[2022-08-03] MEDS: LEVALBUTEROL 1.25MG 0.5ML CONCENTRATE NEB NEB SCH ×4 (07:13→19:36)
[2022-08-03] MEDS: MAGNESIUM OXIDE 400MG TAB (MAG-OX) PO SCH ×2 (09:00→21:32)
[2022-08-03] MEDS ORDERED: FUROSEMIDE 80 MG TAB PO SCH (09:00)
[2022-08-03 09:53] VITALS: BP 146/81
[2022-08-03] MEDS: INSULIN LISPRO (NovoLOG) PER UNIT SC SCH ×4 (10:16→18:19)
[2022-08-03] MEDS: METOPROLOL TART 12.5 MG PER 1/2 TAB PO SCH ×2 (10:16→21:29)
[2022-08-03] MEDS: PANTOPRAZOLE 40MG TAB (PROTONIX) PO SCH ×2 (10:17→21:30)
[2022-08-03] MEDS: ATORVASTATIN 20 MG TAB PO SCH (10:17)
[2022-08-03] MEDS: predniSONE 20 MG TAB PO SCH (10:17)
[2022-08-03] MEDS: GABAPENTIN 100 MG CAP PO SCH ×3 (10:17→21:29)
[2022-08-03] MEDS: AZITHROMYCIN 250MG TABLET PO SCH (10:17)
[2022-08-03] MEDS: HEPARIN SOD (PORCINE) 5000UNITS/ML 1ML VIAL/SYRINGE SC SCH ×2 (10:18→21:31)
[2022-08-03] MEDS: TIMOLOL MALEATE 0.5% OPHTH SOLN 5 ML OD SCH ×2 (10:18→21:32)
[2022-08-03] MEDS: FUROSEMIDE 40MG/4ML VIAL IV SCH (10:18)
[2022-08-03] MEDS: MAG SULF 1GM/100ML (MAG RUN) 1 GM in IV 1 EA IV SCH ×2 (10:19→11:42)
[2022-08-03] MEDS: NICOTINE 21MG/24HR 1 EA TRANSDERMAL TD SCH (10:19)
[2022-08-03] MEDS ORDERED: METOPROLOL TART 12.5 MG PER 1/2 TAB PO ONE (11:20)
[2022-08-03] MEDS: LIDOCAINE 5% (LIDODERM) PATCH TD SCH (11:40)
[2022-08-03] MEDS: LevoFLOXacin 250 MG TABLET PO SCH (11:47)
[2022-08-03] MEDS: LEVEMIR (INSULIN DETEMIR) 1 UNITS/0.01ML SC SCH (11:47)
[2022-08-03 14:23] VITALS: BP 131/70
[2022-08-03] MEDS: NORCO, ANEXSIA 5/325MG TABLET (HYDROcodone/ACETAMINOPHEN) PO PRN ×2 (17:03→23:59)
[2022-08-03] MEDS ORDERED: LEVEMIR (INSULIN DETEMIR) 1 UNITS/0.01ML SC ONE (17:55)
[2022-08-03 18:55] LABS: CALCIUM LEVEL 7.8 MG/DL (8.3-10.6); CREATININE FOR GFR 2.26 MG/DL (0.55-1.30); POTASSIUM SERUM 4.7 MMOL/L (3.5-5.1)
[2022-08-03 20:00] VITALS: BP 115/60
[2022-08-03] MEDS: MIRTAZAPINE 15 MG TAB PO SCH (21:30)
[2022-08-03] MEDS ORDERED: INSULIN LISPRO (NovoLOG) PER UNIT SC ONE (21:45)
[2022-08-04] MEDS ORDERED: INSULIN LISPRO (NovoLOG) PER UNIT SC SCH
[2022-08-04] MEDS: INSULIN LISPRO (NovoLOG) PER UNIT SC SCH ×6 (00:34→20:24)
[2022-08-04 06:00] VITALS: BP 115/62
[2022-08-04 06:10] LABS: HEMATOCRIT 31.3 % (36.0-47.0); MEAN CORPUSCULAR HEMOGLOBIN 30.6 pg (27.0-33.0); MEAN CORPUSCULAR HGB CONC 31.9 g/dl (32.0-36.5); MEAN CORPUSCULAR VOLUME 95.7 fl (80.0-96.0); PLATELET COUNT, AUTOMATED 250 10^3/uL (150-450); RED BLOOD COUNT 3.27 10^6/uL (4.00-5.40); WHITE BLOOD COUNT 7.6 10^3/uL (4.0-10.0)
[2022-08-04] MEDS: LevoFLOXacin 250 MG TABLET PO SCH (06:10)
[2022-08-04] MEDS: NORCO, ANEXSIA 5/325MG TABLET (HYDROcodone/ACETAMINOPHEN) PO PRN ×2 (06:14→18:36)
[2022-08-04 06:34] LABS: MAGNESIUM LEVEL 1.7 MG/DL (1.8-2.4)
[2022-08-04 06:48] LABS: CREATININE FOR GFR 2.3 MG/DL (0.55-1.30); GLOMERULAR FILTRATION RATE 22.6 (>45); POTASSIUM SERUM 3.6 MMOL/L (3.5-5.1)
[2022-08-04] MEDS: IPRATROPIUM 0.02% SOLN 0.5MG 2.5ML NEB NEB SCH ×4 (07:15→20:00)
[2022-08-04] MEDS: LEVALBUTEROL 1.25MG 0.5ML CONCENTRATE NEB NEB SCH ×4 (07:15→20:00)
[2022-08-04] MEDS ORDERED: TORSEMIDE 20 MG TAB PO SCH (09:00)
[2022-08-04] MEDS: HEPARIN SOD (PORCINE) 5000UNITS/ML 1ML VIAL/SYRINGE SC SCH ×2 (09:46→20:33)
[2022-08-04] MEDS: NICOTINE 21MG/24HR 1 EA TRANSDERMAL TD SCH (09:46)
[2022-08-04] MEDS: LIDOCAINE 5% (LIDODERM) PATCH TD SCH (09:46)
[2022-08-04] MEDS: LEVEMIR (INSULIN DETEMIR) 1 UNITS/0.01ML SC SCH (09:46)
[2022-08-04] MEDS: FUROSEMIDE 40MG/4ML VIAL IV SCH (09:47)
[2022-08-04] MEDS: TIMOLOL MALEATE 0.5% OPHTH SOLN 5 ML OD SCH ×2 (09:47→20:33)
[2022-08-04] MEDS: GABAPENTIN 100 MG CAP PO SCH ×3 (09:48→20:32)
[2022-08-04] MEDS: METOPROLOL TART 12.5 MG PER 1/2 TAB PO SCH ×2 (09:48→20:34)
[2022-08-04] MEDS: predniSONE 20 MG TAB PO SCH (09:48)
[2022-08-04] MEDS: ATORVASTATIN 20 MG TAB PO SCH (09:48)
[2022-08-04] MEDS: MAGNESIUM OXIDE 400MG TAB (MAG-OX) PO SCH ×2 (09:48→20:32)
[2022-08-04] MEDS: PANTOPRAZOLE 40MG TAB (PROTONIX) PO SCH ×2 (09:48→20:32)
[2022-08-04] MEDS ORDERED: POTASSIUM CHLORIDE 10MEQ SR TABLET PO ONE (10:00)
[2022-08-04 14:00] VITALS: BP 105/60
[2022-08-04] MEDS: MIRTAZAPINE 15 MG TAB PO SCH (20:32)
[2022-08-04 22:00] VITALS: BP 125/70
[2022-08-05 05:21] VITALS: BP 125/73
[2022-08-05] MEDS: LevoFLOXacin 250 MG TABLET PO SCH (05:38)
[2022-08-05] MEDS: NORCO, ANEXSIA 5/325MG TABLET (HYDROcodone/ACETAMINOPHEN) PO PRN ×3 (05:40→20:28)
[2022-08-05 06:01] LABS: HEMATOCRIT 32.4 % (36.0-47.0); HEMOGLOBIN 10.2 g/dl (12.0-15.5); MEAN CORPUSCULAR HEMOGLOBIN 30.9 pg (27.0-33.0); MEAN CORPUSCULAR HGB CONC 31.5 g/dl (32.0-36.5); MEAN CORPUSCULAR VOLUME 98.2 fl (80.0-96.0); PLATELET COUNT, AUTOMATED 272 10^3/uL (150-450); WHITE BLOOD COUNT 8.1 10^3/uL (4.0-10.0)
[2022-08-05 06:24] LABS: MAGNESIUM LEVEL 1.8 MG/DL (1.8-2.4)
[2022-08-05 06:29] LABS: CALCIUM LEVEL 7.8 MG/DL (8.3-10.6); CREATININE FOR GFR 2.53 MG/DL (0.55-1.30); GLOMERULAR FILTRATION RATE 20.2 (>45); POTASSIUM SERUM 4.4 MMOL/L (3.5-5.1)
[2022-08-05] MEDS: LEVALBUTEROL 1.25MG 0.5ML CONCENTRATE NEB NEB SCH ×4 (07:18→18:07)
[2022-08-05] MEDS: IPRATROPIUM 0.02% SOLN 0.5MG 2.5ML NEB NEB SCH ×4 (07:18→18:07)
[2022-08-05] MEDS ORDERED: MAG SULF 1GM/100ML (MAG RUN) 1 GM in IV 1 EA IV ONE (08:00)
[2022-08-05] MEDS: LEVEMIR (INSULIN DETEMIR) 1 UNITS/0.01ML SC SCH (08:47)
[2022-08-05] MEDS: HEPARIN SOD (PORCINE) 5000UNITS/ML 1ML VIAL/SYRINGE SC SCH ×2 (08:48→20:27)
[2022-08-05] MEDS: NICOTINE 21MG/24HR 1 EA TRANSDERMAL TD SCH (08:48)
[2022-08-05] MEDS: LIDOCAINE 5% (LIDODERM) PATCH TD SCH (08:48)
[2022-08-05] MEDS: INSULIN LISPRO (NovoLOG) PER UNIT SC SCH ×4 (08:48→20:27)
[2022-08-05 08:49] LABS: CLOSTRIDIUM DIFFICILE PCR NEGATIVE (NEGATIVE)
[2022-08-05] MEDS: TIMOLOL MALEATE 0.5% OPHTH SOLN 5 ML OD SCH ×2 (08:49→20:27)
[2022-08-05] MEDS: METOPROLOL TART 25 MG TABLET PO SCH ×2 (08:49→20:26)
[2022-08-05] MEDS: predniSONE 20 MG TAB PO SCH (08:50)
[2022-08-05] MEDS: GABAPENTIN 100 MG CAP PO SCH ×3 (08:50→20:26)
[2022-08-05] MEDS: ATORVASTATIN 20 MG TAB PO SCH (08:50)
[2022-08-05] MEDS: TORSEMIDE 20 MG TAB PO SCH (08:50)
[2022-08-05] MEDS: PANTOPRAZOLE 40MG TAB (PROTONIX) PO SCH ×2 (08:50→20:26)
[2022-08-05] MEDS: MAGNESIUM OXIDE 400MG TAB (MAG-OX) PO SCH ×2 (08:51→20:26)
[2022-08-05 14:00] VITALS: BP 126/74
[2022-08-05] MEDS ORDERED: BETHANECHOL 10 MG TAB PO ONE (16:00)
[2022-08-05] MEDS: LOPERAMIDE 2 MG CAPLET PO PRN (16:23)
[2022-08-05 20:00] VITALS: BP 123/71
[2022-08-05] MEDS: MIRTAZAPINE 15 MG TAB PO SCH (20:26)
[2022-08-06] MEDS: LevoFLOXacin 250 MG TABLET PO SCH (05:19)
[2022-08-06] MEDS: NORCO, ANEXSIA 5/325MG TABLET (HYDROcodone/ACETAMINOPHEN) PO PRN ×2 (05:20→13:52)
[2022-08-06 05:27] LABS: HEMOGLOBIN 10.2 g/dl (12.0-15.5); MEAN CORPUSCULAR HGB CONC 31.9 g/dl (32.0-36.5); MEAN CORPUSCULAR VOLUME 97.3 fl (80.0-96.0); PLATELET COUNT, AUTOMATED 252 10^3/uL (150-450); RED BLOOD COUNT 3.29 10^6/uL (4.00-5.40); WHITE BLOOD COUNT 7.2 10^3/uL (4.0-10.0)
[2022-08-06 05:35] VITALS: BP 133/88
[2022-08-06 05:51] LABS: CALCIUM LEVEL 7.8 MG/DL (8.3-10.6); CREATININE FOR GFR 2.44 MG/DL (0.55-1.30); GLOMERULAR FILTRATION RATE 21.1 (>45); MAGNESIUM LEVEL 1.9 MG/DL (1.8-2.4); POTASSIUM SERUM 4.4 MMOL/L (3.5-5.1)
[2022-08-06] MEDS: IPRATROPIUM 0.02% SOLN 0.5MG 2.5ML NEB NEB SCH ×4 (07:50→19:45)
[2022-08-06] MEDS: LEVALBUTEROL 1.25MG 0.5ML CONCENTRATE NEB NEB SCH ×4 (07:50→19:45)
[2022-08-06] MEDS: predniSONE 20 MG TAB PO SCH (08:10)
[2022-08-06] MEDS: TIMOLOL MALEATE 0.5% OPHTH SOLN 5 ML OD SCH ×2 (08:10→20:53)
[2022-08-06] MEDS: PANTOPRAZOLE 40MG TAB (PROTONIX) PO SCH ×2 (08:10→20:51)
[2022-08-06] MEDS: TORSEMIDE 20 MG TAB PO SCH (08:10)
[2022-08-06] MEDS: HEPARIN SOD (PORCINE) 5000UNITS/ML 1ML VIAL/SYRINGE SC SCH ×2 (08:11→20:53)
[2022-08-06] MEDS: GABAPENTIN 100 MG CAP PO SCH ×3 (08:11→20:51)
[2022-08-06] MEDS: MAGNESIUM OXIDE 400MG TAB (MAG-OX) PO SCH ×2 (08:11→20:53)
[2022-08-06] MEDS: METOPROLOL TART 25 MG TABLET PO SCH ×2 (08:11→20:52)
[2022-08-06] MEDS: ATORVASTATIN 20 MG TAB PO SCH (08:11)
[2022-08-06] MEDS: INSULIN LISPRO (NovoLOG) PER UNIT SC SCH ×4 (08:12→20:23)
[2022-08-06] MEDS: LIDOCAINE 5% (LIDODERM) PATCH TD SCH (08:12)
[2022-08-06] MEDS: NICOTINE 21MG/24HR 1 EA TRANSDERMAL TD SCH (08:12)
[2022-08-06] MEDS: LEVEMIR (INSULIN DETEMIR) 1 UNITS/0.01ML SC SCH (08:12)
[2022-08-06] MEDS ORDERED: LEVO1TAB38 PO (08:43)
[2022-08-06] MEDS ORDERED: MAG SULF 1GM/100ML (MAG RUN) 1 GM in IV 1 EA IV ONE (09:00)
[2022-08-06] MEDS ORDERED: TREL1AER PO (09:25)
[2022-08-06] MEDS ORDERED: METO1TAB87 PO (11:35)
[2022-08-06] MEDS: TAMSULOSIN 0.4 MG CAP PO SCH (12:58)
[2022-08-06] MEDS: BETHANECHOL 10 MG TAB PO SCH (13:49)
[2022-08-06 14:13] VITALS: BP 125/78
[2022-08-06 20:00] VITALS: BP 112/65
[2022-08-06] MEDS: MIRTAZAPINE 15 MG TAB PO SCH (20:51)
[2022-08-07] MEDS: LOPERAMIDE 2 MG CAPLET PO PRN (05:28)
[2022-08-07] MEDS: NORCO, ANEXSIA 5/325MG TABLET (HYDROcodone/ACETAMINOPHEN) PO PRN (05:30)
[2022-08-07 06:00] VITALS: BP 152/87
[2022-08-07 06:42] LABS: HEMATOCRIT 33.7 % (36.0-47.0); HEMOGLOBIN 10.7 g/dl (12.0-15.5); MEAN CORPUSCULAR HEMOGLOBIN 30.7 pg (27.0-33.0); MEAN CORPUSCULAR HGB CONC 31.8 g/dl (32.0-36.5); MEAN CORPUSCULAR VOLUME 96.8 fl (80.0-96.0); PLATELET COUNT, AUTOMATED 275 10^3/uL (150-450); RED BLOOD COUNT 3.48 10^6/uL (4.00-5.40); WHITE BLOOD COUNT 7.6 10^3/uL (4.0-10.0)
[2022-08-07 07:01] LABS: MAGNESIUM LEVEL 1.9 MG/DL (1.8-2.4)
[2022-08-07 07:03] LABS: CREATININE FOR GFR 2.54 MG/DL (0.55-1.30); GLOMERULAR FILTRATION RATE 20.1 (>45); POTASSIUM SERUM 4.6 MMOL/L (3.5-5.1)
[2022-08-07] MEDS: LEVALBUTEROL 1.25MG 0.5ML CONCENTRATE NEB NEB SCH ×2 (07:18→12:00)
[2022-08-07] MEDS: IPRATROPIUM 0.02% SOLN 0.5MG 2.5ML NEB NEB SCH ×2 (07:18→12:00)
[2022-08-07] MEDS ORDERED: MAG SULF 1GM/100ML (MAG RUN) 1 GM in IV 1 EA IV ONE (07:55)
[2022-08-07] MEDS ORDERED: MAGNESIUM OXIDE 400MG TAB (MAG-OX) PO ONE (08:05)
[2022-08-07] MEDS: GABAPENTIN 100 MG CAP PO SCH (09:02)
[2022-08-07] MEDS: ATORVASTATIN 20 MG TAB PO SCH (09:02)
[2022-08-07] MEDS: TAMSULOSIN 0.4 MG CAP PO SCH (09:02)
[2022-08-07] MEDS: TORSEMIDE 20 MG TAB PO SCH (09:02)
[2022-08-07] MEDS: BETHANECHOL 10 MG TAB PO SCH (09:02)
[2022-08-07] MEDS: PANTOPRAZOLE 40MG TAB (PROTONIX) PO SCH (09:02)
[2022-08-07] MEDS: INSULIN LISPRO (NovoLOG) PER UNIT SC SCH ×2 (09:03→12:27)
[2022-08-07] MEDS: NICOTINE 21MG/24HR 1 EA TRANSDERMAL TD SCH (09:03)
[2022-08-07] MEDS: LIDOCAINE 5% (LIDODERM) PATCH TD SCH (09:04)
[2022-08-07] MEDS: HEPARIN SOD (PORCINE) 5000UNITS/ML 1ML VIAL/SYRINGE SC SCH (09:04)
[2022-08-07] MEDS: LEVEMIR (INSULIN DETEMIR) 1 UNITS/0.01ML SC SCH (09:04)
[2022-08-07] MEDS: TIMOLOL MALEATE 0.5% OPHTH SOLN 5 ML OD SCH (09:04)
[2022-08-07 09:05] VITALS: BP 128/70
[2022-08-07] MEDS: MAGNESIUM OXIDE 400MG TAB (MAG-OX) PO SCH (09:05)
[2022-08-07] MEDS: METOPROLOL TART 25 MG TABLET PO SCH (09:05)
[2022-08-07 10:24] VITALS: BP 130/74
[2022-08-07] MEDS ORDERED: BETH10TA4 PO (11:36)
[2022-08-07] MEDS ORDERED: FLOM0.4C39 PO (11:37)
== END 2022-08-07 13:55 | disposition home or self-care (01) | DRG 191 ==
LOC: M ED 09:43 → M ED INP 09:44 → ENRESERV 16:19 → M MSPAV 17:49 → OBSVTOIN 08-04 20:20
PROVIDERS: ADMIT Internal Medicine; ATTEND Internal Medicine
PROC: B246ZZZ Ultrasonography of Right and Left Heart (ICD-10-PCS; principal; 2022-08-03)
DX: J44.1 Chronic obstructive pulmonary disease with (acute) exacerbation (principal); I13.0 Hypertensive heart and chronic kidney disease with heart failure and stage 1 through stage 4 chronic kidney disease, or unspecified chronic kidney disease; N18.4 Chronic kidney disease, stage 4 (severe); L97.922 Non-pressure chronic ulcer of unspecified part of left lower leg with fat layer exposed; N39.0 Urinary tract infection, site not specified; F17.210 Nicotine dependence, cigarettes, uncomplicated; I73.9 Peripheral vascular disease, unspecified; K70.30 Alcoholic cirrhosis of liver without ascites; E11.22 Type 2 diabetes mellitus with diabetic chronic kidney disease; I48.91 Unspecified atrial fibrillation; F32.A Depression, unspecified; Z79.891 Long term (current) use of opiate analgesic; Z89.511 Acquired absence of right leg below knee; Z89.512 Acquired absence of left leg below knee; E11.51 Type 2 diabetes mellitus with diabetic peripheral angiopathy without gangrene; E11.622 Type 2 diabetes mellitus with other skin ulcer; L89.892 Pressure ulcer of other site, stage 2; D63.1 Anemia in chronic kidney disease; E11.42 Type 2 diabetes mellitus with diabetic polyneuropathy; Z20.822 Contact with and (suspected) exposure to COVID-19; Z79.4 Long term (current) use of insulin; Z79.899 Other long term (current) drug therapy; Z79.2 Long term (current) use of antibiotics; Z88.0 Allergy status to penicillin; Z88.1 Allergy status to other antibiotic agents; E11.65 Type 2 diabetes mellitus with hyperglycemia; E83.42 Hypomagnesemia; I27.20 Pulmonary hypertension, unspecified; R60.0 Localized edema; I50.813 Acute on chronic right heart failure

== ENCOUNTER 2022-09-12 19:59 | Inpatient (IN) | payer OTHER ==
[~2022-09-12] VITALS: Ht 180.3 cm; Wt 88.5 kg
[~2022-09-12 19:59] MED LIST changes: +BETH10TA4 PO; +COMBAER6 INH; +FLOM0.4C39 PO; +FURO80TA2 PO; +GLUCINJ IM; +LEVO1TAB38 PO; +METO1TAB87 PO; +MIRT-60 PO; +NOVOINJ3 SC; -NOVOINJ3 SQ; +TREL1AER PO
[2022-09-12 21:51] LABS: BASO % 0.5 % (0.0-1.0); EOS # 0.1 10^3/uL (0.0-0.5); EOS % 1.4 % (0.0-3.0); HEMOGLOBIN 9.6 g/dl (12.0-15.5); LYMPH % 12.3 % (24.0-44.0); MEAN CORPUSCULAR HEMOGLOBIN 31.6 pg (27.0-33.0); MEAN CORPUSCULAR VOLUME 98.7 fl (80.0-96.0); MONO # 0.6 10^3/uL (0.0-0.8); MONO % 7.6 % (2.0-8.0); NEUTROPHILS # 6.3 10^3/uL (1.5-8.5); NEUTROPHILS % 77.8 % (36.0-66.0); PLATELET COUNT, AUTOMATED 255 10^3/uL (150-450); RED BLOOD COUNT 3.04 10^6/uL (4.00-5.40)
[2022-09-12 22:05] LABS: INR 1.11; PROTHROMBIN TIME 14.5 SECONDS (12.5-14.5)
[2022-09-12 22:09] LABS: ALBUMIN 3.2 G/DL (3.2-5.2); BILIRUBIN,DIRECT 0.4 MG/DL (<0.4); BILIRUBIN,TOTAL 0.6 MG/DL (0.3-1.2); CALCIUM LEVEL 8.3 MG/DL (8.3-10.6); CREATININE FOR GFR 2.25 MG/DL (0.55-1.30); GLOMERULAR FILTRATION RATE 23.2 (>45); POTASSIUM SERUM 4.1 MMOL/L (3.5-5.1); TOTAL PROTEIN 6.5 G/DL (5.7-8.2)
[2022-09-13] MEDS ORDERED: ONDANSETRON 4MG 2ML VIAL IV ONE (00:45)
[2022-09-13] MEDS: MORPHINE 2 MG/ML 1ML VIAL IV PRN ×2 (01:01→02:13)
[2022-09-13 01:36] LABS: RSV AMPLIFICATION NEGATIVE (NEGATIVE)
[2022-09-13] MEDS ORDERED: MEROPENEM INJ 1 GM in IV 1 EA IV ONE (02:00)
[2022-09-13] MEDS ORDERED: ACETAMINOPHEN TAB 650MG DOSE (2X325MG) PO PRN (03:00)
[2022-09-13] MEDS ORDERED: GLUCOSE 4GM CHEW TABLET PO PRN (03:00)
[2022-09-13] MEDS ORDERED: GLUCAGON INJ 1MG VIAL SC PRN (03:00)
[2022-09-13] MEDS ORDERED: DEXTROSE 50% 50ML SYRINGE IV PRN (03:00)
[2022-09-13 03:47] VITALS: BP 145/92
[2022-09-13] MEDS ORDERED: FLOM0.4C39 PO (03:56)
[2022-09-13] MEDS ORDERED: MAGN400T2 PO (03:56)
[2022-09-13] MEDS ORDERED: IPRA0.00 INH (03:56)
[2022-09-13] MEDS ORDERED: LEVO1TAB38 PO (03:56)
[2022-09-13] MEDS ORDERED: BETH10TA4 PO (03:56)
[2022-09-13] MEDS ORDERED: METO1TAB87 PO (03:59)
[2022-09-13] MEDS ORDERED: HOME MED LIST COMPLETE! XX SCH (04:00)
[2022-09-13] MEDS ORDERED: NS 1,000 ML IV SCH (04:00)
[2022-09-13] MEDS ORDERED: NICOTINE 21MG/24HR 1 EA TRANSDERMAL TD PRN (04:00)
[2022-09-13] MEDS ORDERED: HYDROmorphone 4MG TABLET PO PRN (04:25)
[2022-09-13 05:42] VITALS: BP 131/67
[2022-09-13] MEDS ORDERED: MORPHINE 2 MG/ML 1ML VIAL IV ONE (06:50)
[2022-09-13] MEDS: HEPARIN SOD (PORCINE) 5000UNITS/ML 1ML VIAL/SYRINGE SC SCH ×3 (06:54→20:44)
[2022-09-13] MEDS: INSULIN LISPRO (NovoLOG) PER UNIT SC SCH ×4 (07:30→20:21)
[2022-09-13] MEDS: IPRATROPIUM 0.5MG/ALBUTEROL 2.5MG INH SOL UD 3ML (DUONEB) INH SCH ×2 (07:42→20:00)
[2022-09-13] MEDS: PANTOPRAZOLE 40MG TAB (PROTONIX) PO SCH ×2 (08:22→20:42)
[2022-09-13] MEDS: ATORVASTATIN 20 MG TAB PO SCH (08:22)
[2022-09-13] MEDS: GABAPENTIN 300 MG CAP PO SCH ×3 (08:22→20:42)
[2022-09-13] MEDS: TIMOLOL MALEATE 0.5% OPHTH SOLN 5 ML OD SCH ×2 (08:22→20:56)
[2022-09-13] MEDS: TAMSULOSIN 0.4 MG CAP PO SCH (08:22)
[2022-09-13] MEDS: BETHANECHOL 10 MG TAB PO SCH ×3 (08:22→16:58)
[2022-09-13] MEDS: FUROSEMIDE 80 MG TAB PO SCH (08:23)
[2022-09-13] MEDS: METOPROLOL TART 25 MG TABLET PO SCH ×2 (08:23→20:54)
[2022-09-13 10:00] VITALS: BP 140/77
[2022-09-13] MEDS ORDERED: BISACODYL 10MG SUPP PR ONE (12:15)
[2022-09-13] MEDS ORDERED: D5W/0.45% SODIUM CHLORIDE 1,000 ML IV SCH (13:05)
[2022-09-13 14:00] VITALS: BP 137/77
[2022-09-13] MEDS ORDERED: MEROPENEM INJ 1 GM in IV 1 EA IV SCH (14:00)
[2022-09-13] MEDS: ANEXSIA, NORCO 7.5MG/325MG TABLET(HYDROCODONE/APAP) PO PRN ×2 (14:01→20:54)
[2022-09-13] MEDS: MIRTAZAPINE 15 MG TAB PO SCH (20:41)
[2022-09-13] MEDS: cefTRIAXone SOD 1 GM in D5W MINI-BAG PLUS 50 ML IV SCH (20:44)
[2022-09-13 22:00] VITALS: BP 108/68
[2022-09-14 05:31] LABS: BASO # 0.1 10^3/uL (0.0-0.2); BASO % 0.9 % (0.0-1.0); EOS # 0.2 10^3/uL (0.0-0.5); EOS % 2.4 % (0.0-3.0); HEMOGLOBIN 9.6 g/dl (12.0-15.5); LYMPH # 1.1 10^3/uL (1.5-5.0); LYMPH % 17.1 % (24.0-44.0); MEAN CORPUSCULAR HEMOGLOBIN 31.2 pg (27.0-33.0); MEAN CORPUSCULAR VOLUME 100.6 fl (80.0-96.0); MONO # 0.6 10^3/uL (0.0-0.8); NEUTROPHILS # 4.7 10^3/uL (1.5-8.5); NEUTROPHILS % 70.3 % (36.0-66.0); PLATELET COUNT, AUTOMATED 225 10^3/uL (150-450); RED BLOOD COUNT 3.08 10^6/uL (4.00-5.40); WHITE BLOOD COUNT 6.7 10^3/uL (4.0-10.0)
[2022-09-14] MEDS: HEPARIN SOD (PORCINE) 5000UNITS/ML 1ML VIAL/SYRINGE SC SCH ×3 (05:38→20:42)
[2022-09-14 06:00] VITALS: BP 125/71
[2022-09-14 06:00] LABS: CALCIUM LEVEL 7.7 MG/DL (8.3-10.6); CREATININE FOR GFR 2.15 MG/DL (0.55-1.30); GLOMERULAR FILTRATION RATE 24.4 (>45); MAGNESIUM LEVEL 1.5 MG/DL (1.8-2.4); POTASSIUM SERUM 4.5 MMOL/L (3.5-5.1)
[2022-09-14] MEDS: IPRATROPIUM 0.5MG/ALBUTEROL 2.5MG INH SOL UD 3ML (DUONEB) INH SCH ×2 (07:14→19:41)
[2022-09-14] MEDS: INSULIN LISPRO (NovoLOG) PER UNIT SC SCH ×4 (07:30→20:41)
[2022-09-14] MEDS: BETHANECHOL 10 MG TAB PO SCH ×3 (07:59→17:12)
[2022-09-14] MEDS: ANEXSIA, NORCO 7.5MG/325MG TABLET(HYDROCODONE/APAP) PO PRN ×2 (08:00→20:44)
[2022-09-14] MEDS: GABAPENTIN 300 MG CAP PO SCH ×3 (08:54→20:43)
[2022-09-14] MEDS: MIRALAX *UNIT DOSE* 17GM PACKET PO SCH (08:54)
[2022-09-14] MEDS: ATORVASTATIN 20 MG TAB PO SCH (08:58)
[2022-09-14] MEDS: TIMOLOL MALEATE 0.5% OPHTH SOLN 5 ML OD SCH ×2 (08:58→20:47)
[2022-09-14] MEDS: METOPROLOL TART 25 MG TABLET PO SCH ×2 (08:58→20:46)
[2022-09-14] MEDS: PANTOPRAZOLE 40MG TAB (PROTONIX) PO SCH ×2 (08:58→20:43)
[2022-09-14] MEDS: TAMSULOSIN 0.4 MG CAP PO SCH (08:59)
[2022-09-14] MEDS: FUROSEMIDE 80 MG TAB PO SCH (08:59)
[2022-09-14] MEDS ORDERED: MAGNESIUM OXIDE 400MG TAB (MAG-OX) PO ONE (09:00)
[2022-09-14] MEDS: SENNA 8.6 MG TAB (SENOKOT) PO SCH ×2 (09:00→20:41)
[2022-09-14] MEDS ORDERED: DOCUSATE SODIUM 100MG CAPSULE PO SCH (09:00)
[2022-09-14] MEDS ORDERED: LACTULOSE 20GM/30ML SYRUP UDC PO ONE (09:00)
[2022-09-14] MEDS ORDERED: BISACODYL 10MG SUPP PR ONE (09:00)
[2022-09-14 10:00] VITALS: BP 121/59
[2022-09-14 14:00] VITALS: BP 126/62
[2022-09-14] MEDS: DOCUSATE SODIUM 100MG CAPSULE PO SCH (20:41)
[2022-09-14] MEDS: cefTRIAXone SOD 1 GM in D5W MINI-BAG PLUS 50 ML IV SCH (20:42)
[2022-09-14] MEDS: MIRTAZAPINE 15 MG TAB PO SCH (20:43)
[2022-09-14] MEDS ORDERED: LIDOCAINE 5% (LIDODERM) PATCH TD PRN (21:20)
[2022-09-14 22:00] VITALS: BP 124/63
[2022-09-15 02:00] VITALS: BP 131/70
[2022-09-15 05:52] LABS: BASO % 0.5 % (0.0-1.0); EOS # 0.1 10^3/uL (0.0-0.5); EOS % 0.9 % (0.0-3.0); HEMATOCRIT 30.9 % (36.0-47.0); HEMOGLOBIN 9.5 g/dl (12.0-15.5); LYMPH # 1.1 10^3/uL (1.5-5.0); LYMPH % 11.9 % (24.0-44.0); MEAN CORPUSCULAR HGB CONC 30.7 g/dl (32.0-36.5); MONO # 0.8 10^3/uL (0.0-0.8); MONO % 8.9 % (2.0-8.0); NEUTROPHILS # 6.9 10^3/uL (1.5-8.5); NEUTROPHILS % 77.5 % (36.0-66.0); PLATELET COUNT, AUTOMATED 222 10^3/uL (150-450); RED BLOOD COUNT 3.06 10^6/uL (4.00-5.40); WHITE BLOOD COUNT 8.9 10^3/uL (4.0-10.0)
[2022-09-15 06:00] VITALS: BP 126/69
[2022-09-15] MEDS: HEPARIN SOD (PORCINE) 5000UNITS/ML 1ML VIAL/SYRINGE SC SCH (06:00)
[2022-09-15 06:17] LABS: CALCIUM LEVEL 7.5 MG/DL (8.3-10.6); CREATININE FOR GFR 2.27 MG/DL (0.55-1.30); GLOMERULAR FILTRATION RATE 22.9 (>45); MAGNESIUM LEVEL 1.4 MG/DL (1.8-2.4); PHOSPHORUS LEVEL 3.5 MG/DL (2.4-5.1); POTASSIUM SERUM 4.1 MMOL/L (3.5-5.1)
[2022-09-15] MEDS: IPRATROPIUM 0.5MG/ALBUTEROL 2.5MG INH SOL UD 3ML (DUONEB) INH SCH (07:31)
[2022-09-15] MEDS ORDERED: MIRA1POW3 PO (08:35)
[2022-09-15] MEDS ORDERED: SENN1TAB94 PO (08:35)
[2022-09-15] MEDS ORDERED: CEFD300C41 PO (08:37)
[2022-09-15] MEDS: TAMSULOSIN 0.4 MG CAP PO SCH (08:50)
[2022-09-15] MEDS: GABAPENTIN 300 MG CAP PO SCH (08:51)
[2022-09-15] MEDS: ATORVASTATIN 20 MG TAB PO SCH (08:51)
[2022-09-15] MEDS: BETHANECHOL 10 MG TAB PO SCH ×2 (08:51→12:35)
[2022-09-15] MEDS: PANTOPRAZOLE 40MG TAB (PROTONIX) PO SCH (08:51)
[2022-09-15] MEDS: FUROSEMIDE 80 MG TAB PO SCH (08:53)
[2022-09-15] MEDS: INSULIN LISPRO (NovoLOG) PER UNIT SC SCH ×2 (08:53→12:00)
[2022-09-15 08:54] VITALS: BP 127/66
[2022-09-15] MEDS: TIMOLOL MALEATE 0.5% OPHTH SOLN 5 ML OD SCH (08:54)
[2022-09-15] MEDS: METOPROLOL TART 25 MG TABLET PO SCH (08:54)
[2022-09-15] MEDS ORDERED: MAGNESIUM OXIDE 400MG TAB (MAG-OX) PO ONE (09:00)
[2022-09-15] MEDS: SENNA 8.6 MG TAB (SENOKOT) PO SCH (09:00)
[2022-09-15] MEDS: MIRALAX *UNIT DOSE* 17GM PACKET PO SCH (09:00)
[2022-09-15] MEDS: DOCUSATE SODIUM 100MG CAPSULE PO SCH (09:00)
== END 2022-09-15 13:07 | disposition home health service (06) | DRG 690 ==
LOC: M ED 19:59 → EDBD 19:59 → M ED INP 09-13 02:55 → ENRESERV 09-13 03:17 → M MSPAV 09-13 03:47
PROVIDERS: ADMIT Family Medicine; ATTEND Internal Medicine
DX: N12 Tubulo-interstitial nephritis, not specified as acute or chronic (principal); K56.7 Ileus, unspecified; I12.9 Hypertensive chronic kidney disease with stage 1 through stage 4 chronic kidney disease, or unspecified chronic kidney disease; N18.4 Chronic kidney disease, stage 4 (severe); E11.51 Type 2 diabetes mellitus with diabetic peripheral angiopathy without gangrene; I48.91 Unspecified atrial fibrillation; I73.9 Peripheral vascular disease, unspecified; Z89.511 Acquired absence of right leg below knee; Z89.512 Acquired absence of left leg below knee; E11.22 Type 2 diabetes mellitus with diabetic chronic kidney disease; F17.210 Nicotine dependence, cigarettes, uncomplicated; J44.9 Chronic obstructive pulmonary disease, unspecified; G89.29 Other chronic pain; F32.A Depression, unspecified; K76.0 Fatty (change of) liver, not elsewhere classified; K74.60 Unspecified cirrhosis of liver; I25.10 Atherosclerotic heart disease of native coronary artery without angina pectoris; D63.1 Anemia in chronic kidney disease; E11.42 Type 2 diabetes mellitus with diabetic polyneuropathy; B96.1 Klebsiella pneumoniae [K. pneumoniae] as the cause of diseases classified elsewhere; Z79.4 Long term (current) use of insulin; Z79.899 Other long term (current) drug therapy; Z88.0 Allergy status to penicillin; Z88.1 Allergy status to other antibiotic agents; Z79.891 Long term (current) use of opiate analgesic; Z20.822 Contact with and (suspected) exposure to COVID-19; E83.42 Hypomagnesemia

== ENCOUNTER → 2022-10-01 | Outpatient (REF) | payer OTHER ==
[~2022-10-01] MED LIST changes: +CEFD300C41 PO; +IPRA0.00 INH; +MAGN400T2 PO; +MIRA1POW3 PO; +SENN1TAB94 PO
[2022-10-01 18:53] LABS: PERCENT SATURATION 11.6 % (13.2-45.0)
[2022-10-01 18:57] LABS: FERRITIN 63.7 NG/ML (7.3-270.7)
== END ==
LOC: M LAB REF 16:59
PROVIDERS: ATTEND Internal Medicine Nephrology
DX: E61.1 Iron deficiency (principal); N30.00 Acute cystitis without hematuria

== ENCOUNTER → 2022-10-29 | Outpatient (REF) | payer OTHER ==
[~2022-10-29] MED LIST changes: +TIMO0.5S20 OD; -TIMO0.5S29 OD
[2022-10-29 19:40] LABS: APPEARANCE, URINE MANUAL CLOUDY (CLEAR); COLOR, URINE MANUAL YELLOW (YELLOW); GLUCOSE, URINE (UA) MANUAL 2+(250 MG/DL) mg/dL (NEGATIVE); PROTEIN, URINE MANUAL 2+ mg/dL (NEGATIVE)
[2022-10-29 19:41] LABS: BILIRUBIN, URINE MANUAL NEGATIVE (NEGATIVE); BLOOD URINE MANUAL TRACE (NEGATIVE); KETONE, URINE MANUAL NEGATIVE (NEGATIVE); LEUKOCYTE ESTERASE, URINE MAN POSITIVE (NEGATIVE); NITRITE, URINE MANUAL POSITIVE (NEGATIVE); UROBILINOGEN, URINE MANUAL NORMAL (NORMAL)
[2022-10-29 20:13] LABS: WBC, URINE TNTC /hpf (0-3)
[2022-10-29 20:14] LABS: RBC, URINE 0-1 /hpf (0-3)
[2022-10-29 20:15] LABS: BACTERIA, URINE LARGE AMOUNT; HYALINE CAST, URINE NONE SEEN /lpf (0-1); SQUAMOUS EPITHELIAL CELL URINE SMALL AMOUNT /hpf (SMALL AMT)
== END ==
LOC: M SMT 16:44
PROVIDERS: ATTEND Physician Assistant
DX: R30.0 Dysuria (principal)

== ENCOUNTER 2022-11-08 15:41 | Inpatient (IN) | payer OTHER ==
[2022-11-08 17:39] VITALS: BP 125/73
[2022-11-08] MEDS ORDERED: GLUCOSE 4GM CHEW TABLET PO PRN (18:00)
[2022-11-08] MEDS ORDERED: DEXTROSE 50% 50ML SYRINGE IV PRN (18:00)
[2022-11-08] MEDS ORDERED: GLUCAGON INJ 1MG VIAL SC PRN (18:00)
[2022-11-08] MEDS ORDERED: ONDANSETRON 4MG 2ML VIAL IV PRN (18:10)
[2022-11-08] MEDS ORDERED: ALBUTEROL 90 MCG/ACT 8GM HFA INHALER INH PRN (18:10)
[2022-11-08] MEDS: MORPHINE 2 MG/ML 1ML VIAL IV PRN (18:22)
[2022-11-08] MEDS: NS 1,000 ML IV SCH (18:27)
[2022-11-08 18:40] LABS: HEMATOCRIT 29.1 % (36.0-47.0); HEMOGLOBIN 9.3 g/dl (12.0-15.5); MEAN CORPUSCULAR HEMOGLOBIN 32.1 pg (27.0-33.0); MEAN CORPUSCULAR VOLUME 100.3 fl (80.0-96.0); PLATELET COUNT, AUTOMATED 188 10^3/uL (150-450)
[2022-11-08 19:03] LABS: ALBUMIN 3.2 G/DL (3.2-5.2); BILIRUBIN,TOTAL 0.4 MG/DL (0.3-1.2); CALCIUM LEVEL 8.2 MG/DL (8.3-10.6); CREATININE FOR GFR 1.97 MG/DL (0.55-1.30); POTASSIUM SERUM 4.5 MMOL/L (3.5-5.1); TOTAL PROTEIN 6.7 G/DL (5.7-8.2)
[2022-11-08 20:29] VITALS: BP 131/49
[2022-11-08] MEDS ORDERED: INSULIN LISPRO (NovoLOG) PER UNIT SC SCH (21:00)
[2022-11-08] MEDS ORDERED: NICOTINE 14 MG/24 HR TRANSDERMAL TD SCH (21:00)
[2022-11-08] MEDS ORDERED: MORPHINE 4 MG/ML 1ML VIAL IV PRN (21:20)
[2022-11-08] MEDS ORDERED: MORPHINE 2 MG/ML 1ML VIAL IV ONE (21:20)
[2022-11-09] MEDS ORDERED: HOME MED LIST COMPLETE! XX SCH (00:35)
[2022-11-09] MEDS: MORPHINE 2 MG/ML 1ML VIAL IV PRN (01:29)
[2022-11-09 06:00] LABS: HEMATOCRIT 29.3 % (36.0-47.0); HEMOGLOBIN 9.4 g/dl (12.0-15.5); MEAN CORPUSCULAR HEMOGLOBIN 32.1 pg (27.0-33.0); MEAN CORPUSCULAR HGB CONC 32.1 g/dl (32.0-36.5); PLATELET COUNT, AUTOMATED 224 10^3/uL (150-450); RED BLOOD COUNT 2.93 10^6/uL (4.00-5.40); WHITE BLOOD COUNT 5.5 10^3/uL (4.0-10.0)
[2022-11-09] MEDS: INSULIN LISPRO (NovoLOG) PER UNIT SC SCH ×3 (06:00→12:00)
[2022-11-09 06:17] VITALS: BP 145/77
[2022-11-09 06:17] LABS: BILIRUBIN,TOTAL 0.4 MG/DL (0.3-1.2); CALCIUM LEVEL 8.3 MG/DL (8.3-10.6); CREATININE FOR GFR 1.89 MG/DL (0.55-1.30); GLOMERULAR FILTRATION RATE 28.3 (>45); MAGNESIUM LEVEL 1.4 MG/DL (1.8-2.4); POTASSIUM SERUM 4.5 MMOL/L (3.5-5.1)
[2022-11-09] MEDS: NS 1,000 ML IV SCH (07:28)
[2022-11-09] MEDS ORDERED: INSULIN LISPRO (NovoLOG) PER UNIT SC SCH (07:30)
[2022-11-09] MEDS ORDERED: IPRATROPIUM 0.5MG/ALBUTEROL 2.5MG INH SOL UD 3ML (DUONEB) INH SCH (08:00)
[2022-11-09 08:04] VITALS: BP 118/79
[2022-11-09] MEDS: BETHANECHOL 10 MG TAB PO SCH ×2 (08:06→12:00)
[2022-11-09] MEDS ORDERED: PANTOPRAZOLE 40MG TAB (PROTONIX) PO SCH (09:00)
[2022-11-09] MEDS ORDERED: ATORVASTATIN 20 MG TAB PO SCH (09:00)
[2022-11-09] MEDS ORDERED: GABAPENTIN 300 MG CAP PO SCH (09:00)
[2022-11-09] MEDS ORDERED: METOPROLOL TART 25 MG TABLET PO SCH (09:00)
[2022-11-09] MEDS ORDERED: MAGNESIUM OXIDE 400MG TAB (MAG-OX) PO SCH (09:00)
[2022-11-09] MEDS ORDERED: LEVEMIR (INSULIN DETEMIR) 1 UNITS/0.01ML SC SCH (09:00)
[2022-11-09] MEDS ORDERED: MIRTAZAPINE 15 MG TAB PO SCH (21:00)
== END 2022-11-09 14:27 | disposition home or self-care (01) | DRG 440 ==
LOC: M MSPAV 17:22
PROVIDERS: ADMIT Internal Medicine; ATTEND Family Medicine
DX: K86.1 Other chronic pancreatitis (principal); I48.91 Unspecified atrial fibrillation; E11.22 Type 2 diabetes mellitus with diabetic chronic kidney disease; N18.9 Chronic kidney disease, unspecified; I12.9 Hypertensive chronic kidney disease with stage 1 through stage 4 chronic kidney disease, or unspecified chronic kidney disease; J44.9 Chronic obstructive pulmonary disease, unspecified; K21.9 Gastro-esophageal reflux disease without esophagitis; F32.A Depression, unspecified; K70.30 Alcoholic cirrhosis of liver without ascites; I73.9 Peripheral vascular disease, unspecified; E11.51 Type 2 diabetes mellitus with diabetic peripheral angiopathy without gangrene; K44.9 Diaphragmatic hernia without obstruction or gangrene; Z89.511 Acquired absence of right leg below knee; Z89.512 Acquired absence of left leg below knee; F17.210 Nicotine dependence, cigarettes, uncomplicated; Z79.4 Long term (current) use of insulin; Z79.899 Other long term (current) drug therapy; Z88.0 Allergy status to penicillin; Z88.1 Allergy status to other antibiotic agents

== ENCOUNTER → 2022-11-08 | Outpatient (CLI) | payer OTHER | LOC: M RAD 12:40 | PROVIDERS: ATTEND Family Medicine | DX: K44.9 Diaphragmatic hernia without obstruction or gangrene (principal); K85.90 Acute pancreatitis without necrosis or infection, unspecified; R10.9 Unspecified abdominal pain ==

== ENCOUNTER 2022-11-17 13:25 | Inpatient (IN) | payer OTHER ==
[~2022-11-17] VITALS: Ht 154.9 cm; Wt 78.7 kg
[2022-11-17] MEDS ORDERED: HYDROMORPHONE HCL 0.5 MG/ 0.5 ML SYRINGE IV PRN (13:45)
[2022-11-17 14:21] LABS: BASO # 0.1 10^3/uL (0.0-0.2); BASO % 0.6 % (0.0-1.0); EOS # 0.2 10^3/uL (0.0-0.5); EOS % 2.2 % (0.0-3.0); HEMATOCRIT 31.7 % (36.0-47.0); HEMOGLOBIN 10.2 g/dl (12.0-15.5); LYMPH # 1.5 10^3/uL (1.5-5.0); LYMPH % 18.2 % (24.0-44.0); MEAN CORPUSCULAR HEMOGLOBIN 32.5 pg (27.0-33.0); MEAN CORPUSCULAR HGB CONC 32.2 g/dl (32.0-36.5); MONO # 0.5 10^3/uL (0.0-0.8); MONO % 6.6 % (2.0-8.0); NEUTROPHILS # 5.8 10^3/uL (1.5-8.5); NEUTROPHILS % 72.2 % (36.0-66.0); PLATELET COUNT, AUTOMATED 268 10^3/uL (150-450); RED BLOOD COUNT 3.14 10^6/uL (4.00-5.40); WHITE BLOOD COUNT 8.1 10^3/uL (4.0-10.0)
[2022-11-17 14:38] LABS: INR 1.08; PROTHROMBIN TIME 14.2 SECONDS (12.5-14.5)
[2022-11-17 14:39] LABS: PARTIAL THROMBOPLASTIN TIME 36.2 SECONDS (24.8-34.2)
[2022-11-17] MEDS ORDERED: DITR1TAB PO (14:43)
[2022-11-17] MEDS ORDERED: ONDA-83 PO (14:43)
[2022-11-17] MEDS ORDERED: TIMO5DRO5 OD (14:43)
[2022-11-17] MEDS ORDERED: SUCR1TAB56 PO (14:43)
[2022-11-17 14:47] LABS: ALBUMIN 3.3 G/DL (3.2-5.2); BILIRUBIN,DIRECT 0.3 MG/DL (<0.4); BILIRUBIN,TOTAL 0.6 MG/DL (0.3-1.2); CK-MB VALUE MASS 1.8 NG/ML (<3.6); MAGNESIUM LEVEL 1.2 MG/DL (1.8-2.4); MB/CK RELATIVE INDEX 2.72 (< OR =4); RSV AMPLIFICATION NEGATIVE (NEGATIVE); TOTAL PROTEIN 6.9 G/DL (5.7-8.2)
[2022-11-17] MEDS ORDERED: MAG SULF 1GM/100ML (MAG RUN) 1 GM in IV 1 EA IV ONE ×2 (15:05→19:00)
[2022-11-17] MEDS ORDERED: NS 1,000 ML IV ONE (15:55)
[2022-11-17] MEDS ORDERED: LIDOCAINE 2% 5ML JELLY UROJET TOP ONE ×2 (17:40→18:25)
[2022-11-17] MEDS ORDERED: CIPROFLOXACIN 400 MG in IV 1 EA IV ONE (18:20)
[2022-11-17] MEDS ORDERED: GLUCOSE 4GM CHEW TABLET PO PRN (18:40)
[2022-11-17] MEDS ORDERED: NS 1,000 ML IV SCH (18:40)
[2022-11-17] MEDS ORDERED: GLUCAGON INJ 1MG VIAL SC PRN (18:40)
[2022-11-17] MEDS ORDERED: DEXTROSE 50% 50ML SYRINGE IV PRN (18:40)
[2022-11-17] MEDS ORDERED: CALC1CAP31 PO (18:53)
[2022-11-17] MEDS ORDERED: HOME MED LIST COMPLETE! XX SCH (18:55)
[2022-11-17 20:20] VITALS: BP 128/81
[2022-11-17] MEDS: INSULIN LISPRO (NovoLOG) PER UNIT SC SCH (20:44)
[2022-11-17] MEDS: LevoFLOXacin IV 750 MG in IV 1 EA IV SCH (20:46)
[2022-11-17] MEDS ORDERED: SUCRALFATE 1 GM TAB PO SCH (21:00)
[2022-11-17] MEDS: MIRTAZAPINE 15 MG TAB PO SCH (21:18)
[2022-11-17] MEDS: METOPROLOL TART 25 MG TABLET PO SCH (21:18)
[2022-11-17] MEDS: MORPHINE 2 MG/ML 1ML VIAL IV PRN (21:19)
[2022-11-17] MEDS: HEPARIN SOD (PORCINE) 5000UNITS/ML 1ML VIAL/SYRINGE SC SCH (21:24)
[2022-11-17 21:59] LABS: GC DNA AMPLIFICATION NEGATIVE (NEGATIVE)
[2022-11-17] MEDS: IPRATROPIUM 0.5MG/ALBUTEROL 2.5MG INH SOL UD 3ML (DUONEB) INH SCH (22:20)
[2022-11-17] MEDS: GABAPENTIN 300 MG CAP PO SCH (22:52)
[2022-11-17] MEDS: TIMOLOL MALEATE 0.25% OPHTH SOLN 5 ML OD SCH (23:19)
[2022-11-18 05:38] VITALS: BP 131/78
[2022-11-18] MEDS: HEPARIN SOD (PORCINE) 5000UNITS/ML 1ML VIAL/SYRINGE SC SCH ×3 (05:43→21:19)
[2022-11-18] MEDS: INSULIN LISPRO (NovoLOG) PER UNIT SC SCH ×5 (05:46→23:57)
[2022-11-18 05:54] LABS: HEMATOCRIT 28.1 % (36.0-47.0); HEMOGLOBIN 8.9 g/dl (12.0-15.5); MEAN CORPUSCULAR HEMOGLOBIN 32.1 pg (27.0-33.0); MEAN CORPUSCULAR HGB CONC 31.7 g/dl (32.0-36.5); MEAN CORPUSCULAR VOLUME 101.4 fl (80.0-96.0); PLATELET COUNT, AUTOMATED 239 10^3/uL (150-450); RED BLOOD COUNT 2.77 10^6/uL (4.00-5.40); WHITE BLOOD COUNT 6.4 10^3/uL (4.0-10.0)
[2022-11-18] MEDS: D5W/0.9% SODIUM CHLORIDE 1,000 ML IV SCH ×2 (06:11→23:59)
[2022-11-18] MEDS: MORPHINE 2 MG/ML 1ML VIAL IV PRN ×2 (06:12→17:23)
[2022-11-18 06:24] LABS: ALBUMIN 2.7 G/DL (3.2-5.2); BILIRUBIN,TOTAL 0.4 MG/DL (0.3-1.2); CALCIUM LEVEL 7.8 MG/DL (8.3-10.6); CREATININE FOR GFR 1.77 MG/DL (0.55-1.30); GLOMERULAR FILTRATION RATE 30.6 (>45); MAGNESIUM LEVEL 1.6 MG/DL (1.8-2.4); POTASSIUM SERUM 4.1 MMOL/L (3.5-5.1); TOTAL PROTEIN 5.6 G/DL (5.7-8.2)
[2022-11-18] MEDS: GABAPENTIN 300 MG CAP PO SCH ×2 (07:53→20:28)
[2022-11-18] MEDS: MAGNESIUM OXIDE 400MG TAB (MAG-OX) PO SCH (07:53)
[2022-11-18] MEDS: SUCRALFATE 1 GM TAB PO SCH ×3 (07:53→17:23)
[2022-11-18] MEDS: METOPROLOL TART 25 MG TABLET PO SCH ×2 (07:55→20:28)
[2022-11-18] MEDS: NICOTINE 14 MG/24 HR TRANSDERMAL TD SCH (07:56)
[2022-11-18] MEDS: TIMOLOL MALEATE 0.25% OPHTH SOLN 5 ML OD SCH ×2 (07:56→20:29)
[2022-11-18] MEDS: IPRATROPIUM 0.5MG/ALBUTEROL 2.5MG INH SOL UD 3ML (DUONEB) INH SCH ×2 (08:00→19:20)
[2022-11-18] MEDS ORDERED: MAG SULF 1GM/100ML (MAG RUN) 1 GM in IV 1 EA IV ONE (09:05)
[2022-11-18 14:00] VITALS: BP 140/71
[2022-11-18 17:20] VITALS: BP 122/72
[2022-11-18 20:00] VITALS: BP 160/74
[2022-11-18] MEDS: MIRTAZAPINE 15 MG TAB PO SCH (20:28)
[2022-11-19] MEDS: MORPHINE 2 MG/ML 1ML VIAL IV PRN ×3 (01:20→20:30)
[2022-11-19] MEDS: HEPARIN SOD (PORCINE) 5000UNITS/ML 1ML VIAL/SYRINGE SC SCH ×3 (05:32→21:03)
[2022-11-19 06:00] VITALS: BP 128/60
[2022-11-19] MEDS: INSULIN LISPRO (NovoLOG) PER UNIT SC SCH ×3 (06:00→18:16)
[2022-11-19] MEDS: IPRATROPIUM 0.5MG/ALBUTEROL 2.5MG INH SOL UD 3ML (DUONEB) INH SCH ×2 (07:58→19:57)
[2022-11-19] MEDS: METOPROLOL TART 25 MG TABLET PO SCH ×2 (08:27→19:42)
[2022-11-19] MEDS: MAGNESIUM OXIDE 400MG TAB (MAG-OX) PO SCH (08:28)
[2022-11-19] MEDS: GABAPENTIN 300 MG CAP PO SCH ×2 (08:28→20:22)
[2022-11-19] MEDS: SUCRALFATE 1 GM TAB PO SCH ×3 (08:29→17:37)
[2022-11-19] MEDS: TIMOLOL MALEATE 0.25% OPHTH SOLN 5 ML OD SCH ×2 (08:30→20:22)
[2022-11-19] MEDS: NICOTINE 14 MG/24 HR TRANSDERMAL TD SCH (08:30)
[2022-11-19] MEDS: ACETAMINOPHEN TAB 650MG DOSE (2X325MG) PO PRN ×2 (08:34→16:10)
[2022-11-19 09:45] LABS: BASO % 0.5 % (0.0-1.0); EOS % 1.9 % (0.0-3.0); HEMOGLOBIN 8.6 g/dl (12.0-15.5); LYMPH % 18.5 % (24.0-44.0); MEAN CORPUSCULAR HEMOGLOBIN 32.3 pg (27.0-33.0); MEAN CORPUSCULAR HGB CONC 31.9 g/dl (32.0-36.5); MEAN CORPUSCULAR VOLUME 101.5 fl (80.0-96.0); MONO % 9.2 % (2.0-8.0); NEUTROPHILS # 6.1 10^3/uL (1.5-8.5); NEUTROPHILS % 69.6 % (36.0-66.0); PLATELET COUNT, AUTOMATED 226 10^3/uL (150-450); RED BLOOD COUNT 2.66 10^6/uL (4.00-5.40); WHITE BLOOD COUNT 8.8 10^3/uL (4.0-10.0)
[2022-11-19 09:46] LABS: EOS # 0.2 10^3/uL (0.0-0.5); LYMPH # 1.6 10^3/uL (1.5-5.0); MONO # 0.8 10^3/uL (0.0-0.8)
[2022-11-19] MEDS ORDERED: PERC5TAB12 PO (10:02)
[2022-11-19] MEDS ORDERED: BACI1CAP PO (10:02)
[2022-11-19] MEDS ORDERED: NICO14PA TD (10:02)
[2022-11-19] MEDS ORDERED: SENO8.6T10 PO (10:02)
[2022-11-19] MEDS ORDERED: LEVO1TAB40 PO (10:02)
[2022-11-19 10:03] LABS: ALBUMIN 2.5 G/DL (3.2-5.2); ALKALINE PHOSPHATASE 166 U/L (46-116); ALT/SGPT < 9 U/L (7.0-40); AST/SGOT 11 U/L (<34); BILIRUBIN,TOTAL 0.5 MG/DL (0.3-1.2); BLOOD UREA NITROGEN 41 MG/DL (9-23); CALCIUM LEVEL 7.6 MG/DL (8.3-10.6); CARBON DIOXIDE LEVEL 21 MMOL/L (20-31); CHLORIDE LEVEL 110 MMOL/L (98-107); CREATININE FOR GFR 2.03 MG/DL (0.55-1.30); GLOMERULAR FILTRATION RATE 26.1 (>45); GLUCOSE, FASTING 225 MG/DL (74-106); MAGNESIUM LEVEL 1.7 MG/DL (1.8-2.4); POTASSIUM SERUM 4.2 MMOL/L (3.5-5.1); SODIUM LEVEL 137 MMOL/L (136-145); TOTAL PROTEIN 5.4 G/DL (5.7-8.2)
[2022-11-19] MEDS ORDERED: MAG SULF 1GM/100ML (MAG RUN) 1 GM in IV 1 EA IV ONE ×4 (10:15)
[2022-11-19] MEDS ORDERED: MOM 30ML SUSPENSION UDC PO ONE (11:00)
[2022-11-19] MEDS: SENOKOT S TAB PO ONE ×2 (11:29→16:13)
[2022-11-19] MEDS: D5W/0.9% SODIUM CHLORIDE 1,000 ML IV SCH (13:48)
[2022-11-19 14:00] VITALS: BP 119/52
[2022-11-19 16:01] LABS: CALCIUM LEVEL 7.3 MG/DL (8.3-10.6); CREATININE FOR GFR 2.13 MG/DL (0.55-1.30); GLOMERULAR FILTRATION RATE 24.7 (>45); MAGNESIUM LEVEL 1.9 MG/DL (1.8-2.4); POTASSIUM SERUM 4.2 MMOL/L (3.5-5.1)
[2022-11-19] MEDS: NS 0.45% 1,000 ML IV SCH (16:31)
[2022-11-19 20:00] VITALS: BP 103/52
[2022-11-19] MEDS: LevoFLOXacin IV 750 MG in IV 1 EA IV SCH (20:13)
[2022-11-19] MEDS: MIRTAZAPINE 15 MG TAB PO SCH (20:22)
[2022-11-19] MEDS ORDERED: INSULIN LISPRO (NovoLOG) PER UNIT SC SCH (21:00)
[2022-11-19] MEDS ORDERED: TAMSULOSIN 0.4 MG CAP PO SCH (21:00)
[2022-11-20 01:02] LABS: CALCIUM LEVEL 7.5 MG/DL (8.3-10.6); CREATININE FOR GFR 2.18 MG/DL (0.55-1.30); POTASSIUM SERUM 4.5 MMOL/L (3.5-5.1)
[2022-11-20] MEDS: MORPHINE 2 MG/ML 1ML VIAL IV PRN (01:03)
[2022-11-20] MEDS: HEPARIN SOD (PORCINE) 5000UNITS/ML 1ML VIAL/SYRINGE SC SCH (05:21)
[2022-11-20] MEDS: NS 0.45% 1,000 ML IV SCH (05:22)
[2022-11-20 06:00] VITALS: BP 137/63
[2022-11-20 06:42] LABS: CALCIUM LEVEL 8.1 MG/DL (8.3-10.6); CREATININE FOR GFR 2.09 MG/DL (0.55-1.30); GLOMERULAR FILTRATION RATE 25.2 (>45); POTASSIUM SERUM 4.8 MMOL/L (3.5-5.1)
[2022-11-20] MEDS: IPRATROPIUM 0.5MG/ALBUTEROL 2.5MG INH SOL UD 3ML (DUONEB) INH SCH (07:10)
[2022-11-20] MEDS: INSULIN LISPRO (NovoLOG) PER UNIT SC SCH ×2 (08:13→12:00)
[2022-11-20] MEDS: GABAPENTIN 300 MG CAP PO SCH (08:13)
[2022-11-20] MEDS: SUCRALFATE 1 GM TAB PO SCH ×2 (08:13→11:40)
[2022-11-20] MEDS: MAGNESIUM OXIDE 400MG TAB (MAG-OX) PO SCH (08:13)
[2022-11-20 08:14] VITALS: BP 137/63
[2022-11-20] MEDS: METOPROLOL TART 25 MG TABLET PO SCH (08:14)
[2022-11-20] MEDS: TIMOLOL MALEATE 0.25% OPHTH SOLN 5 ML OD SCH (08:15)
[2022-11-20] MEDS: NICOTINE 14 MG/24 HR TRANSDERMAL TD SCH (08:15)
[2022-11-20 12:33] LABS: CALCIUM LEVEL 8.1 MG/DL (8.3-10.6); CREATININE FOR GFR 2.14 MG/DL (0.55-1.30); GLOMERULAR FILTRATION RATE 24.5 (>45); POTASSIUM SERUM 4.2 MMOL/L (3.5-5.1)
[2022-11-21] MEDS ORDERED: LevoFLOXacin 750 MG TABLET PO SCH (06:00)
== END 2022-11-20 12:06 | disposition home health service (06) | DRG 689 ==
LOC: M ED 13:25 → M ED INP 18:40 → M MSPAV 20:22
PROVIDERS: ADMIT Family Medicine; ATTEND General Practice
DX: N39.0 Urinary tract infection, site not specified (principal); K85.90 Acute pancreatitis without necrosis or infection, unspecified; N18.4 Chronic kidney disease, stage 4 (severe); N17.9 Acute kidney failure, unspecified; I48.91 Unspecified atrial fibrillation; I12.9 Hypertensive chronic kidney disease with stage 1 through stage 4 chronic kidney disease, or unspecified chronic kidney disease; E11.22 Type 2 diabetes mellitus with diabetic chronic kidney disease; J44.9 Chronic obstructive pulmonary disease, unspecified; R33.9 Retention of urine, unspecified; K21.9 Gastro-esophageal reflux disease without esophagitis; F32.A Depression, unspecified; K70.30 Alcoholic cirrhosis of liver without ascites; I73.9 Peripheral vascular disease, unspecified; E11.51 Type 2 diabetes mellitus with diabetic peripheral angiopathy without gangrene; Z89.511 Acquired absence of right leg below knee; Z89.512 Acquired absence of left leg below knee; D50.9 Iron deficiency anemia, unspecified; E78.5 Hyperlipidemia, unspecified; N94.10 Unspecified dyspareunia; E83.42 Hypomagnesemia; Z20.822 Contact with and (suspected) exposure to COVID-19; Z79.4 Long term (current) use of insulin; Z79.899 Other long term (current) drug therapy; Z88.0 Allergy status to penicillin; Z88.1 Allergy status to other antibiotic agents

== ENCOUNTER → 2022-11-22 | Outpatient (REF) | payer OTHER ==
[~2022-11-22] MED LIST changes: +BACI1CAP PO; +CALC1CAP31 PO; +DITR1TAB PO; +LEVO1TAB40 PO; +NICO14PA TD; +ONDA-83 PO; +PERC5TAB12 PO; +SENO8.6T10 PO; +SUCR1TAB56 PO; +TIMO5DRO5 OD
[2022-11-22 13:16] LABS: CALCIUM LEVEL 8.2 MG/DL (8.3-10.6); CREATININE FOR GFR 2.7 MG/DL (0.55-1.30); GLOMERULAR FILTRATION RATE 18.8 (>45); POTASSIUM SERUM 5.3 MMOL/L (3.5-5.1)
== END ==
LOC: M SFHCADAM 09:30
PROVIDERS: ATTEND Family Medicine
DX: E87.5 Hyperkalemia (principal)

== ENCOUNTER → 2022-12-18 | Outpatient (REF) | payer OTHER ==
[2022-12-18 18:24] LABS: PERCENT SATURATION 21.5 % (13.2-45.0)
[2022-12-18 18:27] LABS: FERRITIN 67.3 NG/ML (7.3-270.7)
== END ==
LOC: M LAB REF 17:31
PROVIDERS: ATTEND Internal Medicine Nephrology
DX: E61.1 Iron deficiency (principal)